=== PATIENT | female | born 1945 | race Caucasian/White ===

== ENCOUNTER 2021-07-21 15:19 | Emergency (ER) | payer OTHER ==
[~2021-07-21] VITALS: Ht 165.1 cm; Wt 62.6 kg
--- NOTE | ~2021-07-21 | EMS ---
[facility] [address] [place] [address] EMS Patient Care Report Name: DINORAH BOND Room #: REG ANLI Fang#: [id number] Admission: 07/21/21 Attend Phys: Discharge: Date of : 43 Report #: [id number] THIS REPORT FOR: //name// Report Transmitted: 07/21/2021 15:36 EMS Care Summary [place], [place]/[facility] Incident [id number] @ 07/21/2021 14:54 Incident Location [id number] [place] [address] Patient DINORAH BOND Female, 76 Years 1945 Patient Address [address] [place], [place] [id number] Patient History Chronic Obstructive Pulmonary Disease (COPD),Dementia,Diabetes,Hypertension (HTN),Parkinson's Disease,Hyperlipidemia,Gastro-Esophageal Reflux Disease (GERD),Schizophrenia,Depression,Anxiety,Anemia,Constipation, Patient Allergies Other drug allergy, Chief Complaint SI Disposition Transported No Lights/[place] Dispatch Reason Psychiatric Problem/Abnormal Behavior/Suicide Attempt Transported To [facility] Narrative pt is found a&o, ambulatory. she made SI statements to staff and is to be transferred for mental health eval at [facility]. pt is calm and cooperative. she seats self on cot, VS, transport w/o incident. report to staff, hallway bed [facility] [address] [place] [address] EMS Patient Care Report Name: DINORAH BOND Room #: [facility]#: [id number] Admission: 07/21/21 Attend Phys: Discharge: Date of : 43 Report #: [id number] Initial Vitals @15:08P: 66,R: 18,BP: 138/68,Pain: 0/10,GCS: 15,SpO2: 95,Revised Trauma: 12, Assessments @15:00MENTAL:Time Oriented,Event Oriented,Person Oriented,Place Oriented,Other,SKIN:No Abnormalities,HEENT:Head/Face: No Abnormalities,LUNG SOUNDS:ABDOMEN:PELVIS//GI:EXTREMITIES:PULSE:Radial: 2+ Normal,NEURO:No Abnormalities, Impression Behavioral/psychiatric episode Procedures @15:00 ALS Assessment Response: Unchanged @15:06 Stretcher Response: Unchanged Timeline 14:52,Call Received 14:52,Dispatch Notified 14:54,Dispatched 14:54,En Route 14:58,On Scene 15:00,At Patient 15:00,ALS Assessment,Response: Unchanged 15:05,Depart Scene 15:06,Stretcher,Response: Unchanged 15:08,BP: 138/68 M,PULSE: 66,RR: 18 R,SPO2: 95 Ox,ETCO2: ,BG: ,PAIN: 0,GCS: 15, 15:16,At Destination 15:31,Call Closed Disclaimer v1.1 Copyright 2020 [employer] This EMS Care Summary contains data elements from the applicable legal record (which may be displayed differently). It is designed to provide pertinent information for the following purposes: continuity of care, clinical quality, and state data reporting. The complete legal record is available to ED staff and administrators of the receiving hospital in [facility]'s Patient Tracker. All data is provided "as is."
[2021-07-21 15:19] VITALS: BP 147/83
[~2021-07-21 15:19] MED LIST: ADULT LOW DOSE81 MG PO; ATIVAN0.5 MG; ATIVAN0.5 MG PO; COLACE 100 MG100 MG PO; FERRO-TIME325 MG PO; IMODIUM MULTI-1 EACH; KLONIPIN PO; KLONOPIN PO; LAMICTAL XR100 MG PO; LAMICTAL XR200 MG PO; MOM; OS-CAL 500+D C1 EACH PO; PEPCID40 MG PO; PROZAC40 MG PO; SIMVASTATIN20 MG PO; SINEMET 25-2501 EAC1 PO; ULTRAM 50MG TAB50 MG; ZYPREXA 10 MG T10 M1 PO; ZYPREXA2.5 MG PO
[2021-07-21 16:44] LABS: URINE BILIRUBIN NEGATIVE (Negative); URINE BLOOD NEGATIVE (Negative); URINE CLARITY CLEAR; URINE COLOR YELLOW; URINE GLUCOSE-RANDOM* NEGATIVE (Negative); URINE KETONES NEGATIVE (Negative); URINE NITRITE-REFLEX NEGATIVE (Negative); URINE PROTEIN (DIPSTICK) NEGATIVE (Negative); URINE UROBILINOGEN 0.2 E.U./dl (0.2-1.0)
--- NOTE | 2021-07-21 16:45 | NUR ---
PT PREVIOUSLY CHECKED FOR WEAPONS BY DR. SCHILLING. SITTER OUTSIDE PT DOOR FOR OBSERVATION & SAFETY. PT PULLED PEN OUT OF UNDERWEAR AREA, REMOVED FROM PT & ROOM BY SITTER
[2021-07-21 16:48] LABS: URINE LEUKOCYTES-REFLEX 1+ (Negative)
[2021-07-21 16:54] LABS: AMP/METHAMP Negative (Negative); BARBITURATES Negative (Negative); BENZODIAZEPINES POSITIVE (Negative); COCAINE Negative (Negative); METHADONE Negative (Negative); OPIATES Negative (Negative); PCP Negative (Negative)
[2021-07-21 17:10] LABS: BACTERIA-REFLEX 1-9 Few /HPF (None Seen); CASTS None Seen /LPF (None Seen); CRYSTALS None Seen /LPF (None Seen); SQUAMOUS 0-3 Few /LPF (0-3); URINE RBC 1-2 Rare /HPF (NONE SEEN); URINE WBC-REFLEX 0-5 Rare /HPF (0-5)
[2021-07-21 17:25] LABS: ABSOLUTE NEUTROPHILS 3.7 thou/uL (1.4-8.2); BASOPHILS 0.6 % (0.0-2.0); EOSINOPHILS 0.5 % (0.0-3.0); HEMATOCRIT 37.2 % (37.0-47.0); HEMOGLOBIN 11.8 gm/dL (12.0-15.0); LYMPHOCYTES 21.2 % (24.0-44.0); MCH 24.6 pg (26.0-34.0); MCHC 31.8 g/dL (28.0-37.0); MCV 77.5 fL (80.0-100.0); MONOCYTES 8.9 % (1.0-8.0); PLATELET COUNT 140 thou/uL (150-400); POLYS 68.8 % (36.0-66.0); RDW 16.3 % (10.5-14.5); WBC 5.4 thou/uL (4.0-11.0)
[2021-07-21 17:38] LABS: ANION GAP 10 mmol/L (7-16); BUN 11 mg/dL (7-18); CALCIUM 9.5 mg/dL (8.5-10.1); CHLORIDE 106 mmol/L (98-107); CO2 27 mmol/L (21-32); CREATININE 0.8 mg/dL (0.6-1.0); GLUCOSE 89 mg/dL (74-106); SODIUM 143 mmol/L (136-145)
[2021-07-21 17:50] LABS: ALBUMIN 3.3 g/dL (3.4-5.0); SGOT 16 U/L (15-37); SGPT 6 U/L (30-65); TOTAL BILIRUBIN 0.3 mg/dL (0.2-1.0); TOTAL PROTEIN 6.7 g/dL (6.4-8.2)
[2021-07-21 20:15] VITALS: BP 133/55
--- NOTE | 2021-07-22 07:10 | EKG ---
[address] [place] [address] ELECTROCARDIOGRAM REPORT Name: DINORAH BOND Room #: [facility]#: [id number] Admission: 07/21/21 Attend Phys: Discharge: 07/21/21 Date of : 43 Report #: [id number] ED Test Date: 2021-07-21 Test Time: 16:01:31 Pat Name: DINORAH BOND Department: Room: 170 Gender: F Continuous Mining Machine Coal Miner: : 1945 Requested By: Candie Grimes Order Number: [id number] MD: Elver Jorgensen Measurements Intervals [place] Rate: 57 P: 79 SD: 181 QRS: 22 QRSD: 117 T: 140 QT: 404 QTc: 394 Interpretive Statements Sinus rhythm Consider left atrial enlargement Nonspecific intraventricular conduction delay Repol abnrm suggests ischemia, anterolateral Compared to ECG 11/26/2013 14:58:17 Intraventricular conduction delay now present Early repolarization now present ST (T wave) deviation no longer present Possible ischemia still present Electronically Signed On 07-22-2021 7:10:11 CDT by Elver Jorgensen [email or web address] <ELECTRONICALLY SIGNED> By: Elver Jorgensen MD, FACC 07/22/21 0710 160 160 Elver Jorgensen MD, FAC /EPI
== END 2021-07-21 20:27 ==
LOC: ER 15:19 → EROBS 19:05 → ER 20:27
PROVIDERS: Physician Assistant
DX: R41.82 Altered mental status, unspecified (principal); Z20.822 Contact with and (suspected) exposure to COVID-19; N39.0 Urinary tract infection, site not specified; F31.9 Bipolar disorder, unspecified; G20 Parkinson's disease; Z90.2 Acquired absence of lung [part of]; Z90.11 Acquired absence of right breast and nipple; Z79.82 Long term (current) use of aspirin; Z79.891 Long term (current) use of opiate analgesic; Z79.899 Other long term (current) drug therapy; Z88.8 Allergy status to other drugs, medicaments and biological substances

== ENCOUNTER 2021-07-21 20:25 | Inpatient (IN) | payer OTHER ==
[~2021-07-21] VITALS: Ht 165.1 cm; Wt 62.4 kg
[2021-07-21 20:25] VITALS: BP 141/84
--- NOTE | 2021-07-22 05:25 | NUR ---
07-21-21 RECEIVED REPORT FROM ED RN DIEGO PT ARRIVED ON UNIT 2034 PT AAOX4, B/P 141/84, P 58, R 16, T 98.5, 02 SAT 94% RA, RR EVEN AND NONLABORED ON RA. PT DENIES SI/HI/VAH AND PAIN. PT REPORTED SHE IS BEING OVER MEDICATED AND THE FOOD IS BAD. PT REPORTED SHE DID MAKE THREATS AGAINST SELF, BUT THAT WAS SO SHE COULD COME TO HOSPITAL. PT HX HTN, VITAMIN DEFICIENCY, ANEMIA, HLD, COPD, GERD, CONSTPIATION, OA, NEOPLASM OF BRONCHUS AND LUNGS, MALIGNANT NEOPLASM OF BREAST, R. MASTECTOMY. DM II, DEPRESSION, SCHIZOPHRENIA. REACH OUT TO [facility] AND THREE DIFFERENT OCCASIONS PHONE NOT ANSWERED R/T CURRENT MEDICATION, DPOA, VACCINE STATUS, IN ED REPORT THAT ALSO TRIED CONTACTING FACILITY WITH NO COMMUNICATION OR REPORT FROM [facility]. HCP Vincent CRYSTAL NP CONTACTED FOR CONSULT. HCP Garrett SALAS NP CONTACTED. LATER THIS AM SPOKE WITH NURSE PARKINSON OF [facility] AND SHE REPORTED SINCE THE PT IS OUT OF THEIR SYSTEM SHE DOES NOT KNOW HOW TO PULL INFORMATION, BUT WILL PASS ON TO ONCOMING STAFF, FAX NUMBER AND UNIT NUMEBER TAKEN BY NURSE PARKINSON. LATER PT REPORTED SHE WAS GLAD TO BE AT HOSPITAL, PT HAS REMAINED PLESANT, CALM AND COOPERATIVE. PT WILL CONTINUE TO BE MONITOR PER [facility] PROTOCOL.
[2021-07-22 06:10] LABS: CHOLESTEROL 157 mg/dL (<200); HDL CHOLESTEROL 61 mg/dL (>40); LDL CHOLESTEROL 78 mg/dL (<100); TC:HDL 2.6 Ratio (Not establshd); TRIGLYCERIDE 94 mg/dL (<150); VLDL 19 mg/dL (<40)
[2021-07-22 06:29] LABS: SERUM ASSESSMENT Clear
--- NOTE | 2021-07-22 09:22 | NUR ---
New admit to [facility]: Pt noted admitted for threats to harm self. Per chart review PMH includes schizophrenia, bipoloar d/o, Parkinson's, depression for psych and anemia, vitamin deficieny, HTN, GERD, COPD and DMII. S/p L lobectomy and R mastectomy. Pt admitted to threats of self harm, but reports that was so she could come to the hospital d/t her facility is over-mdeicating her and the food is bad. Ate 100% of box meal last noc on arrival to floor. No reports of sig wt changes on admit; weight/BMI appropriate. Consider low nutrition risk at this time.
[2021-07-22 10:14] LABS: FOLIC ACID 16.1 ng/mL (8.6-58.9)
--- NOTE | 2021-07-22 12:37 | NUR ---
07-22-2021--1100--Dr. Ott, this worker and patient made a call to the DPOA for the patient. The DPOA is patient's sister, Cynthia Weber ([phone]). [facility] states they talk daily but she had very little information re: the patient. Patient showed up in the ER sent from her [facility]. ([phone]--talk to Abbey). Patient states she is here because she was "banging my head against the wall". She reports when she becomes angry she "self harms". I inquired what she got angry and about and she reported sometimes I just start thinking about things and I get angry. She states she has done this before. The doctor also asked her if it was true that she had made the statement to someone at the home that she wanted to cut her carotid with a knife (suicidal ideation). She talked about when she bangs her head against the wall "It distracts me". She states it doesn't hurt. Patients diagnosis is dementia. The SLUMS was given to her by the Doctor and she scored 16/30. Possible diagnosis also is Alzheimers, depression and anxiety. She displays essential tremors and takes meds cintamint for Parkinsons but she states she has been told by a specialist she doesn't have it. Patient has been at her current placement for about twelve years. She denies SI/HI at this time. DPOA states patient is very active and walks daily. She also likes to participate in activities. DPOA states she believes the dementia has come on recently. She was once and after several years. She then had a "relationship" for over 20 years with someone else. She denies any sexual or physical abuse by her /partners and none in her family or origin. Assessment will be completed this date.
--- NOTE | 2021-07-22 13:17 | NUR ---
COILED TUBING SUPERVISOR contacted [facility] in regards to forms and information needed for patients chart. Night RN informed COILED TUBING SUPERVISOR she was unable to recieve information and the ER had not recieved the information either. COILED TUBING SUPERVISOR spoke to madelin Eaton at 1310 in regards to a DPOA/POA, Nurses Notes for the past 7 days, and a current med list. Angelito informed COILED TUBING SUPERVISOR she would fax the information within the hour.
[2021-07-22 17:20] VITALS: BP 125/67
[2021-07-22 17:21] VITALS: BP 125/67
--- NOTE | 2021-07-22 17:52 | NUR ---
Patient located in bed lying supine apon rounds. Patient presented to COD CLERK flat, depressed, and a little withdrawn. Patient A&O*3 (Self,Place,Situation) lung sounds are clear and unlabored, LBM:07/21/21 abdomen soft with bowel sounds present. Patient denies SI/HI/AVH/Anxiety, but admits to having some depression and pain. Patient states shes having lower back pain which shes had chronicly. COD CLERK presetned different ways to lesson this pain and patient agreed it helped some. Patient later admitted after her nap the pain has resurfaced, medication intervention was completed. Patient states she is upset with facility in which she believes they are overmedicating her and she just wants someone to help her. Patient later came out of her room and participated in groups, meals are in room pending COVID tests. Pt. had a UA done and has sense been placed on antibiotics for a UTI. Pt medication and meal compliant, VSS, fall preventions are in place. Will continue to monitior patient for safety and behaviors.
[2021-07-22 19:57] VITALS: BP 126/63
--- NOTE | 2021-07-23 01:00 | NUR ---
Assumed care on 07/22/21 @ 1900, in room awake alert and oriented x3-4. HRRR, Lungs CTA bilat, ABD N x 4Q reports BM today x2. Reports still anxious with television coverage of war and violence disturbing her. Reports that she thinks of SI/HI when she handles an object, thinks (in passing) of how she could hurt herself with it (like a pencil, how could she effect injury with a pencil) but is able to resist the urge to injure herself. Takes meds whole with water. Cooperative with care. Bed in low position, rounding continues for safety and comfort.
[2021-07-23 03:06] LABS: GLYCOHEMOGLOBIN (HGB A1C) 5.8 % (4.8-5.6)
[2021-07-23 10:24] VITALS: BP 132/81
--- NOTE | 2021-07-23 13:26 | NUR ---
PATIENT CARE ASSUMED AT 0700, PATIENT ALERT AND ORIENTED X3, CALM AND COOPERATIVE WITH CARE TOOK HER MEDICATION WHOLE, BREATH SOUND CLEAR, ACTIVE BOWEL SOUND WITH SOFT ABDOMEN, SKIN INTACT,NO EDEMA NOTED, PATIENT AMBULATE ON A STEADY GAIT, SHE ATTEND GROUP, SHE. PATIENT IS ABLE TO VERBALIZE NEED, SHE DENIES SI/HI. WILL CONTINUE TO MONITOR PATIENT FOR SAFETY AND BEHAVIOR
[2021-07-23 20:30] VITALS: BP 132/74
--- NOTE | 2021-07-23 23:59 | NUR ---
At onset of sales agent casualty insurance pt was sitting in her room awake. Pt was alert with broad affect. Pt was compliant with vital signs and medications. Pt spent free time in the evening in her room journaling. Pt stated she came to the hospital because she hit her head at the jail and her jail staff "couldn't handle it." Pt stated that she has had self-harming behavior all her adult life. Pt stated she does not currently have thoughts to harm herself. Pt stated that she made a contract with day shift that won't hurt herself with pencils. Pt denied having active SI, but stated she does have thoughts about being and being "at peace." Later in the evening pt came out of her room crying, stating "I know why I am here." Pt stated that she has a ex-boyfriend who and she has not mourned him yet. Pt feels she is mourning this ex-boyfriend now. Pt then stated she plans on "pulling an all-nighter." Pt was encouraged to go to sleep. Will continue to monitor.
[2021-07-24 10:20] VITALS: BP 124/62
--- NOTE | 2021-07-24 10:53 | NUR ---
ASSUMED CARE AT 0700, PATIENT SITTING IN THE COMMON AREA, ALERT AND ORIENTED X3, CALM AND COPERATIVE WITH CARE, PATIENT TOOK MEDICATION WHOLE, ABMULATE WITHOUT DEVICES ON A STEADY GAIT, PATIENT IS ABLE TO VERBALIZED NEEDS, TOLD ME SHE IS HAVING A GOOD DAY AND HAPPY ABOUT THE CARE SHE IS GETTING HERE, ASSESSMENT COMPLETED WITH CLEAR LUNGS, ACTIVE BOWEL SOUND WITH SOFT ABDOMEN, HAD A BOWEL MOVEMENT TODAY, SKIN INTACT WITH NO EDEMA NOTED, NO BEHAVIOR CHANGES, WILL CONTINE TO MONITOR PATIENT FOR SAFETY AND BEHAVIOR
--- NOTE | 2021-07-24 13:00 | NUR ---
07-24-2021--1100--Met with patient in the dayroom. She had just returned from a group with the Sodium Chlorite Operator. She stated she had lived in [facility] until a bout 12 years ago when she moved here to be close to her sister. She states she is tired of where she is living and would like something different. She is cooperative in groups. She states she doesn't have a therapist. She enjoys journaling and states this is helpful for her.
[2021-07-24 19:26] VITALS: BP 149/62
--- NOTE | 2021-07-24 19:50 | H ---
[facility] [address] [place] [address] HISTORY AND PHYSICAL Name: DINORAH BOND Room #: 522A-A ADM IN M.R.#: [id number] Admission: 07/21/21 Attend Phys: Gorge Anne DO Discharge: Date of : 43 Report #: [id number] THIS REPORT FOR: cc: Mike Walls MD, Srinath MD Kerstein,Gorge Reed DO ~ DATE OF SERVICE: 07/22/2021 ATTENDING PSYCHIATRIST: Gorge Anne DO MEDICAL CONSULTANTS: Roro Saunders APRN and Gagan Mccracken MD and his hospitalist team. REASON FOR ADMISSION: Suicidal ideation to cut her carotid artery with a knife or razor blade. SOURCES OF INFORMATION: Interview with the patient; chart review here at [facility]; very limited records provided by [employer], verbal conversation with her sister, who is alleged to be her power of auto appraiser, Cynthia Weber; the patient's primary care physician at [facility], Dr. Mike Walls. HISTORY OF PRESENT ILLNESS: A 76-year-old female, brought in to the [facility] by ambulance and the patient told the ER, she was here for self-injury. Nursing staff told EMS that she was going to stick pins in her carotid arteries to kill herself. The patient was very calm in ER and cooperative. PAST MEDICAL HISTORY: Includes right mastectomy, left lung cancer, lobectomy. She is on Sinemet, but it is for her essential tremor not Parkinson's disease. PSYCHIATRIC HISTORY: Nurses from ER report bipolar disorder and depression. MEDICATIONS: From [facility] are highly in question as prior records we do not have, but what is listed in the ER is calcium carbonate with vitamin D, aspirin, famotidine 40 mg daily, simvastatin 1 tab daily, carbidopa/levodopa 25/100 four times a day, Klonopin 0.25 mg b.i.d., olanzapine 10 mg tab at bedtime, fluoxetine 40 mg daily, magnesium hydroxide. ALLERGIES: BUSPIRONE. SOCIAL HISTORY: No alcohol, recreational smoking history. Weight 60.60 kilos, BMI is 22.9, height 165.1 cm. LABORATORY DATA: Hematology; white count 5.4, H and H 11.8 and 38.3, platelet [address] [address] HISTORY AND PHYSICAL Name: DINORAH BOND Room #: 522A-A ADM IN .R.#: [id number] Admission: 07/21/21 Attend Phys: Gorge Anne, Discharge: Date of : 43 Report #: [id number] count 140. Coags were from 2013. Chemistries of recent note, sodium 143, potassium 4.0, chloride 106, bicarbonate 27, anion gap 10, BUN 11, creatinine 0.8, estimated GFR 70, glucose around 89, calcium 9.5, total bilirubin 0.3, AST 16, ALT 6, alkaline phosphatase 130. Troponin less than 4, total protein 6.7, albumin 3.3, triglycerides 94, cholesterol 157, LDL 70, and HDL 61. B12 of 951. Folate 16.1. TSH 2.550, that is all normal. Urinalysis was clean except 1+ leukocyte esterase, 1-9 bacteria. Culture that was triggered showed 40,000 CFUs of Gram-positive cocci , I do not think it is infectious, probable contaminants. Toxicology; salicylate less than 0.8, acetaminophen less than 2. UDS positive for benzos. SARS-CoV-2 PCR is not detected. PHYSICAL EXAMINATION: VITAL SIGNS: Here at [facility], temperature 36.9, pulse 58, respirations 16, BP 141/84, O2 sat 94%. MUSCULOSKELETAL: Normal gait and station. Unkempt appearance. MENTAL STATUS EXAMINATION: This is a well-developed, ill-appearing female, appearing stated age. Attention fair. Concentration limited. Speech normal in rate, tone. Thought process: Linear and goal directed. Thought content focused on present. mood/affect- depressed, restricted, congruent Denied SI, HI. Denied auditory, visual, or tactile hallucinations. Memory formally tested, impaired. Normal SLUMS. Interestingly, she scored 16/30 on her SLUMS, made errors for memory and other. FORMULATION: A 76-year-old female from nursing facility for suicidal ideation. The patient has a history of multiple past psychiatric admissions. Of note too, we got some background history from the patient and it included family history of her sister who is living, one marriage, lives in [place], relationship for 20 years, . She has a college degree. DPOA documents are not handy. DIAGNOSES: At this time, major neurocognitive disorder, may be Alzheimer's disease with behavioral disturbance, also depression. Multiple morbidities including urinary tract infection, disorder, chronic thrombocytopenia, hyperlipidemia, history of breast and lung cancer. PLAN: Admitted voluntarily to [facility] to evaluate and stabilize. We are still waiting on a medication list from the [facility]. Current meds ordered are atorvastatin 20 mg a day and Keflex 500 mg p.o. t.i.d. by hospitalist for UTI, famotidine, carbidopa/levodopa 25/100 one tab 4 times a day, aspirin 81 mg oral daily. I have advised the side effects from her medication list. STRENGTHS: She is insured, has a placement. [facility] [address] [place] [address] HISTORY AND PHYSICAL Name: DINORAH BOND Loni Room #: 522A-A ADM IN ..#: [id number] Admission: 07/21/21 Attend Phys: Gorge Anne DO Discharge: Date of : 43 Report #: [id number] WEAKNESSES: Moderate dementia with longstanding history of mental illness. Time spent on this case was greater than 60 minutes, greater than 50% of time was spent on review of records and coordination of direct care. <ELECTRONICALLY SIGNED> By: Gorge Anne DO 07/24/21 1950 1301 1446 Gorge Anne DO /nt
--- NOTE | 2021-07-24 22:55 | NUR ---
At onset of night warehouse manager pt was sitting in day room talking with peer. This shift pt was alert and oriented x4. Pt spent free time sitting in the day room talking with staff and peers. Pt spent time sitting next to a peer with dementia talking with her and trying to help her stay calm. Pt was compliant with medications and vital signs. Pt endorsed having thoughts to hurt herself and endorsed having thoughts about SI, but pt stated she has been able to resist the thoughts. Pt stated today she has been thinking about how her mother and her sister "stole" her life from her. Pt feels that her mother and sister left her out when she was growing up. Pt stated she does not have a therapist, but was hoping she could be connected with a therapist before she discharges. Pt's affect was broad and affect quality varried from depressed to happy. Pt took PRN trazodone and went to sleep. Will continue to monitor.
[2021-07-25 06:57] VITALS: BP 139/67
--- NOTE | 2021-07-25 10:17 | NUR ---
07-25-2021--7188--I walked in the hallway and patient asked if she could come to my office and talk. She accompanied me to the office. She just had general things to share such as she didn't sleep very well last night and she talked about calling her sister. I explained her nurse tipple supervisor at nurses station would help her when things slowed down on the unit. She went back to the dayroom for group.
--- NOTE | 2021-07-25 11:58 | NUR ---
CARE ASSUMED AT 0700, PATIENT SITTING ON THE CHAIR IN THE DAY ROOM, CALM. PLEASANT AND COOPERATIVE WITH CARE, TOOK MEDICATION WHOLE WITHOUT ANY PROBLEM, AMBULATE ON A STEADY GAIT WITH NO DEVICE, ASSESSMENT DONE, BREATH SOUND CLEAR, ACTIVE BOWEL SOUND WITH SOFT ABDOMEN, REG HR, COLOR PINK WITH BRISK CAPILLARY REFILL, NO EDEMA NOTED, PATIENT LIKE TO HELP OTHER PATIENT, SHE IS ABLE TO VERBALIZE NEED, NO BEHAVIOR CHANGE, DENIES SI/HI WHEN ASKED, WILL CONTINUE TO MONITOR PATIENT FOR BEHAVIOR AND SAFETY
[2021-07-25 20:00] VITALS: BP 110/67
[2021-07-25 20:15] VITALS: BP 110/67
--- NOTE | 2021-07-26 03:07 | NUR ---
FLORIAN CARE WAS RESUMED AT 1900. SHE WAS IN THE DINING AREA. SHE IS ALERT AND ABLE TP VERABLIZE HIS NEEDS. LUNGS ARE CLEAR BS ACTIVE. HE TOOK HER MEDS WHOLE. SHE DENIES PAINS SI/AVH/HI. SHE IS CONTINENT OF BOWEL AND BLADDER. SHE IS ABLE TO VERBALIZE CONCERN. BED IS LOW AND LOCKED. SHE TOOK HER MEDS WHOLE.
[2021-07-26 10:04] VITALS: BP 106/55
--- NOTE | 2021-07-26 17:31 | NUR ---
Assumed pt care at 0700. Pt was alert and oriented x4. Assessments completed, vss. Lungs clear, active bowel sound. Denies si/hi. No c/o pain at this time. Took meds whole, no difficulty noted. AMbulates with a steady gait. Calm and cooperative with care. Continent of bowel and bladder. Makes needs known to staff. Pt was irritable at 1300. Pt was redirectable. No PRN given this shift. At this time pt is in the day room. Will continue to monitor.
[2021-07-26 20:13] VITALS: BP 131/55
--- NOTE | 2021-07-26 21:38 | NUR ---
Assumed care on 07/26/21 @ 1900, up ad vijay ambulating the halls independent of device, spent time in her room and the day room. Seeks out staff to socialize A&Ox4, calm and cooperative with cares. Denies Si/HI, Hallucinations Deny Anx, depr. VSS, HRRR, Lungs CTA bilat, ABD N x 4Q. Ate 100% of evening snack. Retired to bed @ HS, bed in low position, will continue to monitor for safety and comfort as per unit protocol.
--- NOTE | 2021-07-27 16:45 | NUR ---
Assumed pt care at 0700. Pt was alert and oriented x4. Assessments completed, vss. Lungs clear, active bowel sound. Denies si/hi, Denies pain at this time. Took meds whole, no diificulty noted. Ambulates with a steady gait. Calm and cooperative with care. Continent of bowel and bladder. Makes needs known to staff. No sign of acute distress noted at this time. Pt is in the day room eating dinner. Will continue to monitor.
[2021-07-27 19:35] VITALS: BP 118/52
[2021-07-27 19:53] VITALS: BP 118/52
--- NOTE | 2021-07-28 03:51 | NUR ---
ASSUMED CARE ON 07/27/21 @ 1900, A&OX3, PLEASANT AFFECT, SOCIALIZING WITH PEERS IN THE DAY ROOM. DENIES PAIN, COOPERATED WITH ASSESSMENT AND TOOK MEDS WHOLE. REPORTS BM TODAY LARGE WELL FORMED STOOL. PROVIDED SINAMET Q6 ORDERED. REPORTS WANTS TO GO HOME SOON. LOW FALL RISK, AMBULATES WITH A STEADY GAIT. WILL CONTINUE TO MONITOR FOR SAFETY AND COMFORT PER UNIT PROTOCOL.
[2021-07-28 10:49] VITALS: BP 116/53
--- NOTE | 2021-07-28 11:15 | NUR ---
RT Progress Note- Lindsey has been present in the milieu and recreation therapy groups each day of her admission. She is very involved with other patients on the unit, sometimes requiring redirection as she can become "overly helpful." Lindsey benefits from constant structure and has been provided tools to journal and color between programming. She has not voiced suicidal ideation, though verbalizes anxiety caused by the environment. She is able to identify solutions when this occurs. LDR NURSE will continue plan.
--- NOTE | 2021-07-28 15:37 | NUR ---
WILL COME OUT OF ROOM FOR MEALS/GROUPS OTHERWISE WILL RETREAT TO ROOM DURING UNSTRUCTURED TIME. PLEASANT WHEN ENGAGED IN 1;1 WITH NURSING-FULL RANGE AFFECT-CONVERSATION GOAL DIRECTED-MINIMIZES BEHVIORS STATING DOESN'T KNOW WHY SHE IS HERE OR WHY MD WON'T DC HER. VAGUE/SUPERFICIAL RESPONSES TO QUESTIONS ASKED-DENEIS DEPRESSIVE SYMPTOMS-DENIES ACUTE ANXIETY-ORIENTED TO PERSON/PLACE-SITUATION
[2021-07-28 19:47] VITALS: BP 138/101
[2021-07-28 19:51] VITALS: BP 110/70
--- NOTE | 2021-07-29 01:12 | NUR ---
At onset of shift pt was sitting in her room awake. This shift pt was alert and oriented x4. Pt was observed sitting on the floor outside her room. Pt placed herself on the floor because she was waiting for someone to ask for different pants. Pt is physically capable of getting up off the floor by herself. Pt was compliant with vital signs and most medications; pt refused her gabapentin stating she does need it. Pt also stated she does not have parkinsons. Pt was pleasant but was irritable about having a roommate. Pt expressed frustration that the roommate and her have different sleep schedules and the pt stated she could not sleep. Pt recieved her HS trazodone but did not sleep well and was restless. Pt requested a "a shot of booze, I think I have an order for it." RN explained that alcohol is not ordered in the hospital like it can be in the [facility]. Pt denied SI, HI and AVH. Pt endorsed anxiety about discharging tomorrow. RN attempted to reassure pt but pt stated "yeah, yeah, that's what they all say." Pt is low fall risk. Will continue to monitor.
--- NOTE | 2021-07-29 08:19 | NUR ---
07-29--2020---Printed out new packet to fax to [facility] anticipating DC this date after call to OA sister (Cynthia [phone]) and talking to doctor.
--- NOTE | 2021-07-29 08:23 | NUR ---
07-29-2021--ERROR IN ABOVE NOTE--The halfway is [facility]. Call made to talk to DON or admissions. ([phone]). Asked to call back in 20 minutes.
--- NOTE | 2021-07-29 08:57 | NUR ---
07-29-2021--899--Call to [facility] once again to speak to DON or admissions about a fax number for returning patient to the residence. Received fax number from [facility] (FAX: [phone]). I also left a message for them to call me back to discuss DC.
--- NOTE | 2021-07-29 09:04 | NUR ---
07-29-2021--0905--Info gathered and faxed to [facility]. Waiting for a call back.
--- NOTE | 2021-07-29 09:08 | NUR ---
Nutrition follow up: Possible d/c this date back to facility. Noted with variable intakes at meals 25-100% documented with some refusals noted; avg 50% across all meals. No weight since admit. If she does not d/c today, recommend obtain current weight r/t variable intakes. Remains low nutrition risk.
[2021-07-29 09:43] VITALS: BP 143/48
--- NOTE | 2021-07-29 10:44 | NUR ---
07-29-2021--1045--MD irizarry with 1PM DC when we hear back from [facility]. Call to DPOA to advise and see if she wants to provide transportation. left.
--- NOTE | 2021-07-29 10:47 | NUR ---
07-29-2021--1055--Call to Abbey at [facility]. I asked ir 1:00 would work for them and she stated yes and asked if we would feed her first. I told her yes. Call to [facility] and they can't p/u until 2:00 pm. Call back and message left for Abbey that it would be a 2pm p/u. I will tell unit sec the time and talk to patient.
--- NOTE | 2021-07-29 10:58 | NUR ---
07-29-2021--1100--Talked to unit sec and gave 2:00 time. Talked to patient and gave her the 2:00 pm time for pickup. Will let doctor know time change
[2021-07-29] MEDS ORDERED: LEXAPRO20 MG PO (12:57)
[2021-07-29] MEDS ORDERED: NEURONTIN 300M300 M2 PO (12:57)
[2021-07-29] MEDS ORDERED: TRAZODONE HCL50 MG PO (12:58)
[2021-07-29] MEDS ORDERED: NAMENDA 5 MG TAB5 M1 PO (12:58)
[2021-07-29] MEDS ORDERED: COLACE 100 MG100 MG PO (13:07)
[2021-07-29] MEDS ORDERED: PEPCID20 MG PO (13:08)
[2021-07-29] MEDS ORDERED: VITAMIN B-12500 MCG PO (13:08)
[2021-07-29] MEDS ORDERED: VITAMIN D325 MC2 PO (13:09)
--- NOTE | 2021-07-29 13:44 | NUR ---
MESSAGE LEFT FOR SANTO ARCE DPMARIA ESTHER AT [phone] TO REVIEW DC PAPERWORK-INSTRUCTIONS,MEDICATIONS ETC-AWAITING RETURN CALL. REPORT CALLED TO XIOMY AT [facility]. AISSATOU IS ALERT,COOPERATIVE AND PLEASANT AT TIME OF DC-DENIES SI/SH/HI. DENIES ACUTE ANXIETY AND STATING FEELS READY FOR DC. PERSONAL BELONGINGS SECURED AND SECURITY CONTACTED RE 2 VALUABLES ENVELOPES WHICH WILL BE PICKED UP AT TIME OF DC.
--- NOTE | 2021-07-29 15:15 | NUR ---
PT DISCHARGED VIA WHEELCHAIR ACCOMPNIED BY NURSING STAFF-[facility] TO TRANSPORT TO [facility]. COOPERATIVE AND PLEASANT AT TIME OF DC
--- NOTE | 2021-07-30 08:40 | D ---
[facility] [address] [place] [address] DISCHARGE SUMMARY Name: DINORAH BOND Room #: 522B-B [facility] IN M.R.#: [id number] Admission: 07/21/21 Attend Phys: Gorge Anne DO Discharge: 07/29/21 Date of : 43 Report #: [id number] THIS REPORT FOR: cc: Mike Walls MD, Srinath MD Kerstein,Gorge Reed DO ~ DATE OF SERVICE: 07/29/2021 INPATIENT PSYCHIATRIC DISCHARGE SUMMARY ATTENDING PSYCHIATRIST: Gorge Anne DO CLAIMS DIRECTOR: Gorge Galdamez MD DISCHARGE DIAGNOSES: Major neurocognitive disorder, etiology unspecified with behavioral disturbance, improved; major depressive disorder, unspecified, improved; unspecified anxiety as well as mood stabilization. ADDITIONAL MEDICAL COMORBIDITIES: Include: 1. Urinary tract infection, ruled out. 2. Chronic thrombocytopenia, platelets stable at 140. 3. Hyperlipidemia, on statin. 4. History of breast and lung cancer. The patient is discharging back to [facility]. She has been a resident there for 12 years. Psychiatric and medical care per receiving facility. Would recommend psychotherapy and psychiatry consultation at nursing facility. DISCHARGE DIET: Regular. ACTIVITY LEVEL: As tolerated, but the patient does require 24/7 supervision. Obviously, no smoking, no alcohol, no illicit drugs. DISCHARGE MEDICATIONS: As follows: Calcium carbonate with vitamin D3 one tablet oral daily for supplementation, aspirin 81 mg oral daily for hypertension, simvastatin 20 mg oral daily for hyperlipidemia, carbidopa/levodopa 25/250 one tablet 4 times a day for tremor. This was started at the nursing facility. The patient is requesting evaluation for discontinuation of this medication and I defer to the usp physician. Medications, gabapentin 300 mg oral daily for unspecified anxiety, Lexapro 20 mg oral daily for depression, trazodone 50 mg oral at bedtime p.r.n. for sleep, memantine 5 mg oral b.i.d. for cognitive enhancement, docusate sodium 100 mg oral daily for bowel motility, Pepcid 20 mg oral daily for GERD, cyanocobalamin 500 mcg oral daily for supplementation, vitamin D3 1000 international units oral daily for supplementation. [facility] [address] [place] [address] DISCHARGE SUMMARY Name: DINORAH BOND Room #: 522B-B [facility] IN [facility].#: [id number] Admission: 07/21/21 Attend Phys: Gorge Anne DO Discharge: 07/29/21 Date of : 43 Report #: [id number] LABORATORY DATA: Significant laboratories this admission, hematology H and H 11.8 and 37.2, white count 5.4, platelet count 140. Chemistries this admission, sodium 145, potassium 4.0, chloride 106, bicarbonate 27, BUN is 11, creatinine 0.8, estimated GFR 89. A1c 5.8, calcium 9.5, total bilirubin 0.3, AST 16, ALT 6, alkaline phosphatase 130. Troponin less than 4, albumin 3.3, triglycerides 94. Cholesterol 157, LDL 78, HDL 61. B12 level normal at 951. Folate level normal at 61. TSH normal at 2.550. Urinalysis was grossly negative. Salicylate less than 2.8, acetaminophen less than 2. Benzodiazepines positive. Otherwise, UDS negative. COVID-19 serology was negative on the 07/21/2021, 07/24/2021 and 07/26/2021. REASON FOR ADMISSION: The patient is a 76-year-old female residing in [facility] sent out for suicidal ideation to cut her carotid artery with a razor blade. HOSPITAL COURSE: The patient was admitted to the Geriatric Psychiatry Unit. [facility] mental status examination was done. The patient scored, I believe , confirming her neurodegenerative disorder. The patient's mood did rapidly improve. I reduced her Lexapro from 30 mg daily to 20 mg daily. Given the patient's current behavior, I felt reduction of seritonin burden was reasonable. I also started on gabapentin at 200 mg 3 times a day, increasing to 300 mg 3 times a day. She had prominent anxiety and felt she would benefit from mood stabilization. The patient did have some disinhibited behavior with a male peer, but nothing that was terrible. Importance of boundaries were discussed including nursing facility where she will be returning to believe her sister who is her DPOA and was contacted during this admission. The patient has had difficulty functioning throughout her adult life and resulted in her early usp placement sister advised. CONDITION AT DISCHARGE: Stable. Not suicidal or homicidal. PHYSICAL EXAMINATION: GENERAL: Well-developed, fairly nourished female. VITAL SIGNS: Today on discharge, temperature 36.3, pulse 72, respirations 18, BP 143/48, O2 sat 96%. BMI 22.9. MUSCULOSKELETAL: Normal gait and station. EKG done this admission on 07/21/2021, QTc 394, QT 404, DE interval 181 milliseconds, pulse 57, sinus rhythm. MENTAL STATUS EXAMINATION: This is a well-developed, age-appearing female. Attention fair. Concentration fair. Speech normal rate and tone. Thought process: Linear and goal directed. Thought content: Focused on the present. Denied SI, HI. No auditory or visual type hallucinations. mood/affect" good" congruent, euthymic [address] [address] DISCHARGE SUMMARY Name: DINORAH BOND Loni Room #: 522B-B [facility] M.R.#: [id number] Admission: 07/21/21 Attend Phys: Gorge Anne DO Discharge: 07/29/21 Date of : 43 Report #: [id number] Memory known to be impaired. Insight limited. Judgment limited. Fund of knowledge, no greater than average. Prognosis for this patient is guarded given age of 76, having a neurodegenerative disease. <ELECTRONICALLY SIGNED> By: Gorge Anne DO 07/30/21 0840 1945 18 Gorge Anne DO /nt
== END 2021-07-29 15:00 | DRG 881 ==
LOC: SBH 20:25
PROVIDERS: ADMIT Psychiatry & Neurology Psychiatry; ATTEND Psychiatry & Neurology Psychiatry
DX: F32.9 Major depressive disorder, single episode, unspecified (principal); F01.51 Vascular dementia, unspecified severity, with behavioral disturbance; F02.81 Dementia in other diseases classified elsewhere, unspecified severity, with behavioral disturbance; R45.851 Suicidal ideations; G20 Parkinson's disease; E03.9 Hypothyroidism, unspecified; I10 Essential (primary) hypertension; Z20.822 Contact with and (suspected) exposure to COVID-19; F41.9 Anxiety disorder, unspecified; E11.9 Type 2 diabetes mellitus without complications; E78.5 Hyperlipidemia, unspecified; J43.9 Emphysema, unspecified; K21.9 Gastro-esophageal reflux disease without esophagitis; D69.6 Thrombocytopenia, unspecified; Z90.11 Acquired absence of right breast and nipple; Z85.118 Personal history of other malignant neoplasm of bronchus and lung; Z85.3 Personal history of malignant neoplasm of breast; Z88.8 Allergy status to other drugs, medicaments and biological substances
CPT/HCPCS: 10880

== ENCOUNTER 2021-10-20 11:39 | Emergency (ER) | payer OTHER ==
[~2021-10-20] VITALS: Ht 165.1 cm; Wt 61.2 kg
--- NOTE | ~2021-10-20 | EMS ---
[facility] [address] [place] [address] EMS Patient Care Report Name: DINORAH BOND Room #: REG ANIL Fang#: [id number] Admission: 10/20/21 Attend Phys: Discharge: Date of : 43 Report #: [id number] THIS REPORT FOR: //name// Report Transmitted: 10/20/2021 14:28 EMS Care Summary [place], [place]/FD Incident [id number] @ 10/20/2021 10:56 Incident Location [address] [facility] 411 Patient DINORAH BOND Female, 76 Years 1945 Patient Address [address] [place] [address] Patient History Chronic Obstructive Pulmonary Disease (COPD),Hypertension (HTN),Hyperlipidemia,Breast Cancer,Emphysema,Anxiety Disorder (Panic Attacks),Schizophrenia,Depression,Osteoarthritis,Anxiety,Type 2 Diabetes, Patient Allergies No known allergies, Patient Medications Zyprexa, Lexapro, Atorvastatin, Chief Complaint Psychiatric episode Disposition Transported No Lights/[place] Dispatch Reason Psychiatric Problem/Abnormal Behavior/Suicide Attempt Transported To [facility] Narrative [facility] medic 36 dispatched to a half-way facility for a suicidal patient. 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 Facility staff reported that pt had a psychiatric episode and had thrown all of her belongings all over her room. Pt moved to the EMS cot under her own power and was secured with seatbelts. Pt was taken to and loaded into the ambulance without incident. Pt was transported to [facility] while vital signs were monitored. Pt was unloaded from the ambulance and taken in to ER where report was given and care of the pt and posession of her belongings was turned over to ER staff without incident. Initial Vitals @11:16P: 79,R: 14,BP: 148/121,Pain: 0/10,GCS: 15,Glucose: 187,SpO2: 95,Revised Trauma: 12, @11:18P: 76,R: 14,BP: 124/59,Pain: 0/10,GCS: 15,CO: 0,SpO2: 93,Revised Trauma: 12, @11:23P: 77,R: 14,BP: 116/64,Pain: 0/10,GCS: 15,CO: 0,SpO2: 92,Revised Trauma: 12, Assessments @11:13MENTAL:Confused,SKIN:No Abnormalities,HEENT:LUNG SOUNDS:ABDOMEN:PELVIS//GI:EXTREMITIES:PULSE:NEURO:No Abnormalities, Impression Behavioral/psychiatric episode Procedures @11:10 ALS Assessment Response: UnchangedSucceeded @11:23 BLS Assessment Response: Unchanged @11:24 Stretcher Response: Unchanged Timeline 10:54,Call Received 10:54,Dispatch Notified 10:56,Dispatched 10:58,En Route 11:08,On Scene 11:08,At Patient 11:10,ALS Assessment,Response: UnchangedSucceeded, 11:16,BP: 148/121 M,PULSE: 79,RR: 14 R,SPO2: 95 Ox,ETCO2: ,B,PAIN: 0,GCS: 15, 11:18,BP: 124/59 M,PULSE: 76,RR: 14 R,SPO2: 93 Ox,ETCO2: ,BG: ,PAIN: 0,GCS: 15, 11:22,Depart Scene 11:23,BP: 116/64 M,PULSE: 77,RR: 14 R,SPO2: 92 Ox,ETCO2: ,BG: ,PAIN: 0,GCS: 15, 11:23,BLS Assessment,Response: Unchanged 11:24,Stretcher,Response: Unchanged 11:35,[place] [address] EMS Patient Care Report Name: DINORAH BOND Loni [id number] Admission: 10/20/21 Attend Phys: Discharge: Date of : 43 Report #: [id number] 11:48,Call Closed Disclaimer v1.1 Copyright 2021 [employer] This EMS Care Summary contains data elements from the applicable legal record (which may be displayed differently). It is designed to provide pertinent information for the following purposes: continuity of care, clinical quality, and state data reporting. The complete legal record is available to ED staff and administrators of the receiving hospital in [facility]'s Patient Tracker. All data is provided "as is."
--- NOTE | ~2021-10-20 | EMS ---
[facility] [address] [place] [address] EMS Patient Care Report Name: RONDADINORAH Ivey Room #: REG ANIL Fang#: [id number] Admission: 10/20/21 Attend Phys: Discharge: Date of : 43 Report #: [id number] THIS REPORT FOR: //name// Report Transmitted: 10/20/2021 11:17 EMS Care Summary [place], [place]/FD Incident [id number] @ 10/20/2021 10:56 Incident Location [address] [facility] 411 Patient DINORAH BOND Female, 76 Years 1945 Patient Address [id number] [place] [address] Patient History Chronic Obstructive Pulmonary Disease (COPD),Hypertension (HTN),Hyperlipidemia,Breast Cancer,Emphysema,Anxiety Disorder (Panic Attacks),Schizophrenia,Depression,Osteoarthritis,Anxiety,Type 2 Diabetes, Patient Allergies No known allergies, Patient Medications Zyprexa, Lexapro, Atorvastatin, Chief Complaint Psychiatric episode Disposition Transported No Lights/[place] Dispatch Reason Psychiatric Problem/Abnormal Behavior/Suicide Attempt Transported To [facility] Narrative [facility] medic 36 dispatched to a longterm facility for a suicidal patient. [facility] [address] [place] [address] EMS Patient Care Report Name: DINORAH BOND Room #: REG Annalisa#: [id number] Admission: 10/20/21 Attend Phys: Discharge: Date of : 43 Report #: [id number] Upon arrival found pt seated in the social media director's office. Facility staff reported that pt had a psychiatric episode and had thrown all of her belongings all over her room. Pt moved to the EMS cot under her own power and was secured with seatbelts. Pt was taken to and loaded into the ambulance without incident. Pt was transported to [facility] while vital signs were monitored. Pt was unloaded from the ambulance and taken in to ER where report was given and care of the pt and posession of her belongings was turned over to ER staff without incident. Initial Vitals @11:16P: 79,R: 14,BP: 148/121,Pain: 0/10,GCS: 15,Glucose: 187,SpO2: 95,Revised Trauma: 12, @11:18P: 76,R: 14,BP: 124/59,Pain: 0/10,GCS: 15,CO: 0,SpO2: 93,Revised Trauma: 12, @11:23P: 77,R: 14,BP: 116/64,Pain: 0/10,GCS: 15,CO: 0,SpO2: 92,Revised Trauma: 12, Assessments @11:13MENTAL:Confused,SKIN:No Abnormalities,HEENT:LUNG SOUNDS:ABDOMEN:PELVIS//GI:EXTREMITIES:PULSE:NEURO:No Abnormalities, Impression Behavioral/psychiatric episode Procedures @11:10 ALS Assessment Response: UnchangedSucceeded @11:23 BLS Assessment Response: Unchanged @11:24 Stretcher Response: Unchanged Timeline 10:54,Call Received 10:54,Dispatch Notified 10:56,Dispatched 10:58,En Route 11:08,On Scene 11:08,At Patient 11:10,ALS Assessment,Response: UnchangedSucceeded, 11:16,BP: 148/121 M,PULSE: 79,RR: 14 R,SPO2: 95 Ox,ETCO2: ,B,PAIN: 0,GCS: 15, 11:18,BP: 124/59 M,PULSE: 76,RR: 14 R,SPO2: 93 Ox,ETCO2: ,BG: ,PAIN: 0,GCS: 15, 11:22,Depart Scene 11:23,BP: 116/64 M,PULSE: 77,RR: 14 R,SPO2: 92 Ox,ETCO2: ,BG: ,PAIN: 0,GCS: 15, 11:23,BLS Assessment,Response: Unchanged 11:24,Stretcher,Response: Unchanged 11:35,At Destination [address] [address] EMS Patient Care Report Name: DINORAH BOND Room #: REG ANIL Fang#: [id number] Admission: 10/20/21 Attend Phys: Discharge: Date of : 43 Report #: [id number] 11:48,Call Closed Disclaimer v1.1 Copyright 2021 [employer] This EMS Care Summary contains data elements from the applicable legal record (which may be displayed differently). It is designed to provide pertinent information for the following purposes: continuity of care, clinical quality, and state data reporting. The complete legal record is available to ED staff and administrators of the receiving hospital in [facility]'s Patient Tracker. All data is provided "as is."
[~2021-10-20 11:39] MED LIST changes: +LEXAPRO20 MG PO; +NAMENDA 5 MG TAB5 M1 PO; +NEURONTIN 300M300 M2 PO; +PEPCID20 MG PO; +TRAZODONE HCL50 MG PO; +VITAMIN B-12500 MCG PO; +VITAMIN D325 MC2 PO
[2021-10-20] MEDS ORDERED: LIPITOR40 MG PO (11:52)
[2021-10-20] MEDS ORDERED: NUPLAZID34 MG PO (11:53)
[2021-10-20] MEDS ORDERED: RISPERDAL25 MG/2 ML IM (11:56)
[2021-10-20] MEDS ORDERED: ZYPREXA5 MG PO (11:56)
[2021-10-20 12:12] LABS: HEMATOCRIT 36.7 % (37.0-47.0); HEMOGLOBIN 11.9 gm/dL (12.0-15.0); MCH 24.7 pg (26.0-34.0); MCHC 32.3 g/dL (28.0-37.0); MCV 76.6 fL (80.0-100.0); RBC 4.8 mil/uL (4.20-5.00); WBC 7.3 thou/uL (4.0-11.0)
[2021-10-20 12:26] LABS: ANION GAP 12 mmol/L (7-16); BUN 13 mg/dL (7-18); CALCIUM 9.4 mg/dL (8.5-10.1); CHLORIDE 108 mmol/L (98-107); CO2 25 mmol/L (21-32); CREATININE 0.9 mg/dL (0.6-1.0); GLUCOSE 125 mg/dL (74-106); POTASSIUM 3.6 mmol/L (3.5-5.1); SODIUM 145 mmol/L (136-145)
[2021-10-20 12:29] LABS: ALBUMIN 3.2 g/dL (3.4-5.0); SALICYLATE < 2.8 mg/dL (2.8-20.0); SGOT 23 U/L (15-37); SGPT 20 U/L (14-59); TOTAL BILIRUBIN 0.7 mg/dL (0.2-1.0); TOTAL PROTEIN 6.6 g/dL (6.4-8.2)
[2021-10-20 13:58] LABS: URINE BILIRUBIN NEGATIVE (Negative); URINE BLOOD NEGATIVE (Negative); URINE CLARITY CLEAR; URINE COLOR YELLOW; URINE GLUCOSE-RANDOM* NEGATIVE (Negative); URINE KETONES NEGATIVE (Negative); URINE LEUKOCYTES-REFLEX NEGATIVE (Negative); URINE NITRITE-REFLEX NEGATIVE (Negative); URINE PROTEIN (DIPSTICK) NEGATIVE (Negative)
[2021-10-20 14:16] LABS: AMP/METHAMP Negative (Negative); BARBITURATES Negative (Negative); BENZODIAZEPINES Negative (Negative); COCAINE Negative (Negative); METHADONE Negative (Negative); OPIATES Negative (Negative); PCP Negative (Negative)
[2021-10-20 16:35] VITALS: BP 133/58
== END 2021-10-20 16:35 ==
LOC: ER 11:39
PROVIDERS: Emergency Medicine; Nurse Practitioner Family
DX: F02.80 Dementia in other diseases classified elsewhere, unspecified severity, without behavioral disturbance, psychotic disturbance, mood disturbance, and anxiety (principal); Z20.822 Contact with and (suspected) exposure to COVID-19; I10 Essential (primary) hypertension; E78.5 Hyperlipidemia, unspecified; J44.9 Chronic obstructive pulmonary disease, unspecified; K21.9 Gastro-esophageal reflux disease without esophagitis; E11.9 Type 2 diabetes mellitus without complications; G20 Parkinson's disease; Z85.3 Personal history of malignant neoplasm of breast; Z85.118 Personal history of other malignant neoplasm of bronchus and lung; Z79.899 Other long term (current) drug therapy; Z79.891 Long term (current) use of opiate analgesic; Z79.82 Long term (current) use of aspirin; Z88.8 Allergy status to other drugs, medicaments and biological substances

== ENCOUNTER 2021-10-20 16:25 | Inpatient (IN) | payer OTHER ==
[~2021-10-20] VITALS: Ht 167.6 cm; Wt 50.9 kg
[~2021-10-20 16:25] MED LIST changes: +LIPITOR40 MG PO; +NUPLAZID34 MG PO; +RISPERDAL25 MG/2 ML IM; +ZYPREXA5 MG PO
[2021-10-20 17:00] VITALS: BP 143/66
--- NOTE | 2021-10-20 18:25 | NUR ---
[age] YE[age] OLD FEMALE ADMITTED TO [facility] ROOM 522B. PT WAS BROUGHT INTO THE ER FROM HER RETIREMENT DUE TO AGGRESSIVE, DESTRUCTIVE BEHAVIOR. PT WAS ALSO WALKING AROUND NAKED AND NOT TAKING HER MEDICATIONS. PT ALERT AND ORIENTED TIMES THREE. VSS. DENIES SI/HI/AH/VH/PAIN/SOA. PT UP AB BRADY WITH STEADY GAIT. TOLERATED DINNER. SPOKE WITH PT SUKUMAR BLANCHARD(SISITER) TO GET VERBAL CONSENT FOR TREATMENT.
[2021-10-20 19:24] VITALS: BP 126/68
--- NOTE | 2021-10-21 00:03 | NUR ---
ASSUMED CARE ON 10/20/21 @ 1900, IN BED AND AWAKE, LOOKING OUT THE WINDOW, TALKED A LOT ABOUT FIRES, POSSIBLE VISUAL HALLUCINATIONS SEEING FIRES. CONFUSED CHATTER ABOUT CHICKENS, FIRE AND RANDOM VERBAGE THAT WAS NONSENSICAL. A&OX1 TO SELF ONLY. DENIES SI/HI, UNABLE TO FOCUS AND ANSWER OTHER MENTAL HEALTH QUESTIONS. LOW FALL RISK, WILL CONTINUE TO MONITOR FOR SAFETY AND COMFORT PER UNIT PROTOCOL.
[2021-10-21 09:34] VITALS: BP 137/58
--- NOTE | 2021-10-21 16:17 | NUR ---
Met with patient in room. Student, Melisa, was also present. Patient was groomed and appeared to be stated age. Patient was agile, crossing her legs on the bed with no assistance and appearing to not be in pain. The patient ambulated without the use of a walker. The patient was not oriented to time, place or situation. When asked if she knew where she was, patient initially expressed not knowing but then stating the "suicide place". Patient reports always having some thoughts of hurting self but not having a current plan. When asked where was she born, patient replied "[place]". Patient reports to not having children and being . 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 When asked what does she enjoy doing, she stated "sugaring up things". The patient's tray was brought to the room. The patient opened the container, opened her drink and started pouring the drink on the food. The SW intervened saying that that is for her to drink. The patient immediately stops pouring the drink and starts to drink it. The patient was calm and pleasant.
[2021-10-21 19:21] VITALS: BP 118/69
--- NOTE | 2021-10-22 01:03 | NUR ---
At onset of cloth bin packer pt was sitting in day room coloring. This shift pt was alert and oriented x2. Pt spent free time in the evening watching TV, coloring, and filing her nails. Pt was compliant with medication and vital signs. Pt had a broad affect and was overall calm, pleasant and cooperative. Pt denied SI, HI, AVH, depression and anxiety. Pt made her requests known appropriately. Pt is low fall risk. Will continue to monitor.
[2021-10-22 05:57] LABS: ABSOLUTE NEUTROPHILS 5.7 thou/uL (1.4-8.2); BASOPHILS 0.5 % (0.0-2.0); EOSINOPHILS 2.3 % (0.0-3.0); HEMATOCRIT 35.6 % (37.0-47.0); HEMOGLOBIN 11.3 gm/dL (12.0-15.0); LYMPHOCYTES 16.1 % (24.0-44.0); MCH 24.7 pg (26.0-34.0); MCHC 31.7 g/dL (28.0-37.0); MCV 77.8 fL (80.0-100.0); MONOCYTES 6.4 % (1.0-8.0); PLATELET COUNT 171 thou/uL (150-400); POLYS 74.7 % (36.0-66.0); RBC 4.58 mil/uL (4.20-5.00); RDW 16.3 % (10.5-14.5); WBC 7.7 thou/uL (4.0-11.0)
[2021-10-22 06:25] LABS: CHOLESTEROL 135 mg/dL (<200); HDL CHOLESTEROL 49 mg/dL (>40); LDL CHOLESTEROL 73 mg/dL (<100); TC:HDL 2.8 Ratio (Not establshd); TRIGLYCERIDE 65 mg/dL (<150); VLDL 13 mg/dL (<40)
[2021-10-22 10:30] VITALS: BP 112/49
--- NOTE | 2021-10-22 13:37 | NUR ---
Alert and orientated X1. Calm, cooperative and compliant. Denies SI/HI. Ambulates with regular, steady gait. Breath sounds clear. Reg HR auscultated. Color pink with brisk capillary refill and palpable peripheral pulses. No edema noted. Independent with voiding. Active bowel sounds over soft, rounded abdomen.
--- NOTE | 2021-10-22 16:57 | NUR ---
Check in with patient. Patient wanted a sheet of paper. Patient reported to wanting to color but also something more difficult than coloring. The provided the patient with a coloring sheet and a word search. The patient was very happy and sat down to start completing.
[2021-10-22 19:46] VITALS: BP 119/48
--- NOTE | 2021-10-23 02:05 | NUR ---
PATIENT AAOX1 AND EXHIBITS SOME SHORT TERM MEMORY ISSUES. PT STATES THAT SHE WAS HAVING SOME BACK PAIN IN HER LOWER LEFT SIDE. SHE TOOK TYLENOL WHICH SHE STATES HELPED RELIEVE HER ISSUE. SHE PACED THE FLOOR FOR A FEW HOURS BEFORE GOING TO BED. SHE WAS CALM AND COOPERATIVE DURING THIS SHIFT. WAS CONFUSED ABOUT WHAT SHE WAS TAKING GABAPENTIN FOR. NO S/S OF DISTRESS NOTED. WILL CONTINUE TO MONITOR.
[2021-10-23 07:12] LABS: GLYCOHEMOGLOBIN (HGB A1C) 5.9 % (4.8-5.6)
[2021-10-23 09:19] VITALS: BP 102/49
--- NOTE | 2021-10-23 09:52 | H ---
[facility] [place] [address] HISTORY AND PHYSICAL Name: DINORAH BOND Room #: 522B-B ADM IN M.R.#: [id number] Admission: 10/20/21 Attend Phys: Gorge Anne DO Discharge: Date of : 43 Report #: [id number] THIS REPORT FOR: cc: Mike Walls MD, Srinath MD Kerstein,Gorge Reed DO ~ DATE OF SERVICE: 10/21/2021 INPATIENT PSYCHIATRIC EVALUATION SUMMARY ATTENDING PSYCHIATRIST: Gorge Anne DO MEDICAL CONSULTANTS: Roro Saunders APRN and Db Penaloza MD REASON FOR PSYCHIATRIC ADMISSION: Behavioral disturbance at a nursing facility. CHIEF COMPLAINT: Unspecified. SOURCES OF INFORMATION: Brief interview with the patient; medical records here at [place]; telephone conversation with her sister and Cynthia PATINO. HISTORY OF PRESENT ILLNESS: This is a 76-year-old female known to me from admission in 07/2021, sent out from [facility]. She is under Dr. Chau and follow with his care there. The patient reportedly "destroyed" her room, was not speaking. She has a medical history that includes hypertension, anemia, COPD, GERD, type 2 diabetes mellitus, lung cancer, breast cancer, and dementia. Parkinson's has been loosely diagnosed, but I remain skeptical she actually has it. She was brought in due to destroying her room, running around naked in the nursing facility. The patient was also mute with her caregivers at [facility]. Apparently, she had been accepted as an inpatient at [facility]; however, due to weather, the ambulance was diverted here. The patient will answer simple questions in the ER, but will not elaborate on her visit. She is unable to tell us why she is here. She did know her name and date but is unable to state the correct year in the ER. On my interview today, patient was cheerful, pleasant, did not have recollection of destroying her room or being otherwise in a state of duress. PSYCHIATRIC HISTORY: Includes major depressive disorder, schizophrenia, anxiety, dementia. PAST MEDICAL HISTORY: Hypertension, vitamin D deficiency, anemia, hyperlipidemia, COPD, GERD, diabetes mellitus type 2, insomnia, breast cancer, COVID on 09/29/2021. HOME MEDICATIONS: Include Lexapro 20 mg daily, trazodone 50 mg at bedtime, famotidine 20 mg oral daily. She also was previously getting gabapentin [address] [address] HISTORY AND PHYSICAL Name: DINORAH BOND Room #: 522B-B ADM IN M.R.#: [id number] Admission: 10/20/21 Attend Phys: Gorge Anne DO Discharge: Date of : 43 Report #: [id number] t.i.d. that was discontinued at the senior living. Memantine 5 mg twice a day, docusate, cyanocobalamin, cholecalciferol. There pimavanserin was never started. She has previously been on Sinemet, but that was discontinued prior to admission. ALLERGIES: BUSPAR. SOCIAL HISTORY: No alcohol. No recreational drug use. REVIEW OF SYSTEMS: Not able to be completed. LABORATORY DATA: Hematology: White count 7.3, H and H 11.9 and 36.7, platelet count 159. Sodium 145, potassium 3.6, chloride 108, bicarbonate 25, anion gap 12, BUN 13, creatinine 0.9, estimated GFR 61, glucose 125, calcium 9.4. Total bilirubin 0.7, AST 23, ALT 20, alkaline phosphatase 112, total protein 6.6. Albumin 3.2, which is low. TSH is 1.140. Urinalysis negative except for a few bacteria. TOXICOLOGY: Salicylate is less than 0.8, acetaminophen less than 2, otherwise negative. Serum alcohol less than 10. SEROLOGY: COVID-19 PCR not detected. IMAGING THIS ADMISSION: Head CT done on 10/20 showed no acute intracranial abnormalities, age-related findings included moderate to severe cerebral and cerebellar volume loss, atherosclerosis and mild chronic central white matter microvascular ischemia and there was some sinusitis. PHYSICAL EXAMINATION: VITAL SIGNS: Temperature 35.7, pulse 71, respirations 17, BP 137/50, O2 sat 96%. GENERAL: Seated in chair, short hair, wearing hospital gown. MENTAL STATUS EXAMINATION: Well-developed female, appearing slightly younger than stated age. Attention fair. Concentration limited. Speech normal in rate. Thought process: Linear and goal directed. Thought content: Focused on her peers and activities she did once stable. Denied SI, HI. Denied auditory, visual, or tactile hallucinations. Denied hopelessness, helplessness. Mood and affect was euthymic, somewhat inappropriate for situation and congruent. Insight and judgment were impaired. Fund of knowledge is diminished. FORMULATION: A 76-year-old female with known history of major neurocognitive disorder, admitted to senior Behavioral Health Unit. [address] [address] HISTORY AND PHYSICAL Name: DINORAH BOND Room #: 522B-B ADM IN M.R.#: [id number] Admission: 10/20/21 Attend Phys: Gorge Anne DO Discharge: Date of : 43 Report #: [id number] PLAN: Admitted via DPOA. Evaluate, stabilize, obtain collateral. Regarding her current medications, it was unclear exactly why her regimen was changed. When I talked to her sister today, she was unaware. She was not appearing overtly psychotic, so I elected to restart her on gabapentin 200 mg 3 times a day. We will go ahead and increase that to 300 mg 3 times a day for tonight until tomorrow. Continue famotidine 20 mg daily, atorvastatin 40 mg daily. Otherwise, house PRNs. ESTIMATED LENGTH OF STAY: 10-14 days. STRENGTHS: She is insured, has a placement. WEAKNESSES: Aggressive dementia. <ELECTRONICALLY SIGNED> By: Gorge Anne DO 10/23/21 [id number] Gorge Anne DO /nt
--- NOTE | 2021-10-23 11:59 | NUR ---
PATIENT CARE ASSUMED AT 0700 - APPROACHED AND VERY PLEASANT AND AGREEABLE. ALERT AND ORIENTED X 1 - DID NOT KNOW DATE - DAY - OR MONTH WHEN QUESTIONED. DENIES ANY S/I OR H/I WHEN ASKED. ACKNOWLEDGED DR. SCHILLING WHEN HE ARRIVED. NO AGIATATION OF AGGRESSION NOTED. CALM AND REDIRECTABLE. AMBULATORY - EATING MEALS - PARTICIPATED IN MORNING GROUPS. CONFUSION OBSERVED - NEEDING HELP. WILL CONTINUE TO MONITOR PATIENT FOR SAFETY AND TO ADDRESS ANY CONCERNS IF NEEDED.
[2021-10-23 20:03] VITALS: BP 140/66
--- NOTE | 2021-10-24 05:04 | NUR ---
Assumed care of pt at 1900. Pt calm et cooperative this shift. Took medications whole without difficulty. Ambulates the halls ad vijay with steady gait. Socialized with peers in dayroom watching TV until HS. VSWNL. Health assessment with no abnormalities noted this shift. Denies SI/HI at present time. Currently resting in bed with eyes closed. Will coontinue to monitor per unit protocol.
[2021-10-24 07:33] VITALS: BP 125/53
[2021-10-24 09:00] VITALS: BP 125/53
--- NOTE | 2021-10-24 14:33 | NUR ---
Updates faxed to [facility]
--- NOTE | 2021-10-24 15:34 | NUR ---
Assumed pt care from overnight shift this am, client presented confused but pleasant at this time. Client was oriented to person and place, but was disoriented to all else when assessment was done. Pt denied depression and anxiety at this time, stating that she was doing "alright as ever" and denied hallucinations at this time as well, stating that she "couldn't imagine having those." Pt denied any si/hi at this time. Pt denied pain as well. Pt lung sounds clear. Bowel sounds active. Last BM 10/23/21. Pt voices no other concerns, and continues to walk about unit. Steady gait- does not want to use walker when asked. Disoriented, but pleasant and cooperative. Participating in groups. No further concerns.
[2021-10-24 19:13] VITALS: BP 105/60
--- NOTE | 2021-10-25 05:56 | NUR ---
patient aox2 confused and forgetful. patient interacts well with peers. patient had a flat affect, poor eye contact, good grooming and hygiene.patient ambulates in the unit with steady gaits. patient is up at vijay. patient in bed asleep at this time breathing regular and unlaboured.
[2021-10-25 08:10] VITALS: BP 109/61
[2021-10-25 09:15] VITALS: BP 109/61
[2021-10-25 09:46] VITALS: BP 109/61
--- NOTE | 2021-10-25 16:24 | NUR ---
This RN spoke to pt's facility this morning who stated pt tested positive for COIVD on 09/29/21. This RN asked for a copy to be faxied which has since been placed in pt's chart.
--- NOTE | 2021-10-25 16:31 | NUR ---
Patient positive for covid September 28, 2021. Confirmed by Jocelyne Ashley at [facility].
--- NOTE | 2021-10-25 17:44 | NUR ---
Assumed pt care this morning from overnight shift. Pt was pleasant but confused at this time, and presented oriented to self only during this time. Pt denied anxiety, but stated that she had depression with a happy smile on her face, stating that that "it was a silly notion." Pt likewise answered yes on suicidal thoughts, stating "all the time" happily, while following up with mentioning that it was a "silly notion again." No plan was dicerned from this statement, and client stated that she had no plan at this time, while smiling. Client denied homicidal ideation, but stated, "I won't tell if you won't" and smiled. Client smiling and humming to herself as she said this, and once again stated no plan. Client denied pain. Client lung sounds clear and diminished. Bowel sounds active. Client has been taking meds whole. Actively joined group and voiced wanting to "be as tall as a [employer] tree." Client refuses to use walker during this shift. States that she can ambulate without it. Has not been listening to staff, and is disoriented to own abilities, though has steady gait. Client later found to have tried to have taken shower by herself. Client had bathroom wet and water on the floor. Caught this behavior during q12 minute rounds by staff. Client had attempted to wash hair by self but was unsuccessful. Bathroom cleaned at this time, and client reoriented. Client continues to need to be reoriented at this time, and is in activity area being monitored q12 min rounds. No further concerns at this time.
[2021-10-25 22:35] VITALS: BP 139/66
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
--- NOTE | 2021-10-26 05:28 | NUR ---
PT WAS AWAKE AND RESTLESS MOST OF THE NIGHT. EVEN AFTER TAKING TRAZODONE, SHE DID NOT GO TO SLEEP UNTIL AROUND 0345 THIS MORNING. PT IS VERY SOCIAL WITH OTHER PATIENTS WHEN AWAKE. SHE IS PLEASANT AND EASY TO REDIRECT. HOWEVER, SHE HAS A VERY SHORT ATTENTION SPAN WHEN REDIRECTED TO NEW ACTIVITIES. PT DID STATE THAT IT HELPS HER TO WRITE DOWN HER THOUGHTS WHEN SHE HAS NEGATIVE FEELINGS. WILL CONTINUE TO MONITOR FURTHER.
[2021-10-26 09:58] VITALS: BP 120/61
[2021-10-26 11:49] VITALS: BP 120/61
--- NOTE | 2021-10-26 15:00 | NUR ---
Resummed care @0700; Patient located in the [facility] area along side her peers; No S/O acute distress noted; A&O*2; Current denial of SI/HI/AVH; although KYLE Cardozo informed SOLAR POWER INSTALLER of patient stating she is having current SI; when asked if patient had a plan - Patient stated she was going to "poke" herself in the wrist and a mole would appear; Patient presents, [id number]-impulsive; SOLAR POWER INSTALLER has visualized patient going around the unit and removing other patients name tags from the hallway doorjams; Patient has also been visualized in other patients rooms, male & female. - When asked what she was doing, patient stated " Were just hanging out. " Precautions have been taken on the unit to avoid this conflict; Patient is medication/meal compliant; Denied pain at this time; Ambulation up ad-vijay, gait visualized steady with a fast pace; Patient is redirectable at times, although throughout the day when the animal control officer have attempted redirection, the patient has become sarcastic with staff. Laughing, and mimic the FORM SETTER STEEL FORMS's; Low-Fall precautions are in place at this time; VSS on roomair; Will continue to monitiot per [facility] protocol;
--- NOTE | 2021-10-26 15:39 | NUR ---
Updates faxed to [facility] with indication of discharge review tomorrow, Monday.
--- NOTE | 2021-10-26 16:38 | NUR ---
Primary nursing care done by Aiden Houser LPN Alert and orientated to person and place. Calm, cooperative and compliant. Confused and restless at times. When asked about SI she stated that sometimes she thought about it but she would poke herself and then it would turn into a mole. Could not give more info. Denies HI. Restless at times and trying to climb over couch, redirectable. Breath sounds clear. Reg HR auscultated. Color pink with brisk capillary refill and palpable peripheral pulses. No edema noted. Independent with voiding. Active bowel sounds over soft, flat abdomen. Ambulates with regular, steady gait.
[2021-10-26 19:19] VITALS: BP 139/68
[2021-10-26 20:54] VITALS: BP 134/68
--- NOTE | 2021-10-26 21:48 | NUR ---
RESUMMED CARE FROM DAY SHIFT THIS EVENING, PATIENT SITTING IN DAY ROOM TALKING WITH OTHER PATIENTS. PATIENT ALERT ORIENTED TIMES 3 SHE STATES SHE DID NOT KNOW SHE WAS MANIC. PATIENT DENIES SI/HI/AH/VH AT PRESENT PATIENT STATES HER ANXIETY IS A 6 AND DEPRESSION A 3. PATIENT TEARFUL TALKING WITH ME STATING SHE DOES NOT HAVE FAMILY TO TAKE CARE OF HER. SHE WANTS TO LEAVE BUT IS AWAITING PLACEMENT. PATIENTS ABDOMEN SOFT BOWEL SOUNDS PRESENT PATIENTS LUNGS CLEAR DESPITE OCCASSIONAL COUGH. PATIENT CALM COOPERATIVE WILL CONTINUE TO MONITOR PATIENT FOR SAFETY AND BEHAVIORS.
--- NOTE | 2021-10-27 06:37 | NUR ---
PT RESTING IN BED AT THIS TIME.PT HAVE BEEN SLEEPING MOST OF THE NOC.DENIES ANY DISTRESS.NO CHANGES NOTED OVERNIGHT.
[2021-10-27 10:00] VITALS: BP 109/49
[2021-10-27 10:28] VITALS: BP 109/49
--- NOTE | 2021-10-27 17:10 | NUR ---
Assumed pt care from overnight shift this am. Pt presented calm and sleepy during this time, and was in bed asleep for first two hours of shift. Pt did not want to eat breakfast, or do assessment until around 10am as pt voiced feeling tired when prompted. Pt left to rest in room at this time. When pt was prompted again for medications, pt was noted to be in bathroom. Pt helped with brief change during this time, and was reoriented. Pt became restless and wandering after this time. Pt was constantly redirected to stay in chair or to use walker when getting up. Pt would not listen to staff and try to climb chairs or put feet on table during this time. Pt was unable to answer orientation questions, and was oriented to self only during this time. Pt presented with erratic and wandering behavior, and was positioned closely to staff and various coping skills and techniques used to soothe pt at this time to help alleviate restlessness. Pt still unable to be redirected after numerous attempts. PRN 1mg ativan and 5 mg haldol given at 1433 to help with this, as pt was becoming increaingly agitated and hostile, and was noted to have hematuria when toileted. Lap sergio ordered. Lap sergio d/c after pt had calmed down and stopped trying to reach for chairs and table. Dr. Emerson called at this time and Dr. Anne paged. UA and straight cath orders obtained from Dr. Anne. Currently have no obtained staight cath at time of this note as pt has been in gerichair resting after injection. No further concerns at this time.
[2021-10-27 19:19] VITALS: BP 111/46
--- NOTE | 2021-10-28 00:21 | NUR ---
At onset of field ironworker pt was sleeping in mey chair in day room. Pt was slouched over sleeping. Pt recieved IM haldol and ativan in the afternoon during day shift. Pt was drowsy and lethargic. Pt was able to resond to her name and when asked how she was doing pt stated "same old, same old." Pt was helped to her bed by OPERATOR ASSISTANT I CEMENTING. Pt was asleep when RN went to assess her. Pt would not wake up enough to safety swallow her HS medications. RN help meds. Unable to assess orientation, SI, HI and AVH due to drowsiness. Fall precautions are in place. Will continue to monitor.
[2021-10-28 05:27] LABS: URINE BILIRUBIN NEGATIVE (Negative); URINE BLOOD 3+ (Negative); URINE CLARITY SL CLOUDY; URINE COLOR YELLOW; URINE GLUCOSE-RANDOM* NEGATIVE (Negative); URINE KETONES 1+ (Negative); URINE NITRITE-REFLEX NEGATIVE (Negative); URINE PROTEIN (DIPSTICK) 1+ (Negative); URINE SPECIFIC GRAVITY 1.025 (1.005-1.035)
[2021-10-28 05:30] LABS: URINE LEUKOCYTES-REFLEX 1+ (Negative)
[2021-10-28 05:53] LABS: CASTS None Seen /LPF (None Seen); CRYSTALS None Seen /LPF (None Seen); MUCUS 4-6 Moderate strn/LPF (None Seen); SQUAMOUS 4-10 Moderate /LPF (0-3); URINE RBC >20 Many /HPF (NONE SEEN); WBC CLUMPS Few (None Seen)
[2021-10-28 09:56] VITALS: BP 115/59
[2021-10-28 12:52] VITALS: BP 115/59
--- NOTE | 2021-10-28 14:18 | NUR ---
Alert and orientated to person and time. Denies SI/HI. Sitting in recliner. Calm and cooperative, currently visiting with dogs. Breath sounds clear. Reg HR auscultated. Color pink with brisk capillary refill and palpable peripheral pulses. No edema noted. Brief dry. Active bowel sounds over soft, flat abdomen. Able to stand and take several steps, gait slightly unsteady.
--- NOTE | 2021-10-28 14:28 | NUR ---
Check in with patient. Patient was in dayroom in Felicita-chair. Patient reported to doing well. Patient attempted to get out of chair to go see the dogs that was in the dayroom but was informed that she should remain seated and the dogs would come to her.
--- NOTE | 2021-10-28 15:50 | NUR ---
Resummed care @0700; Patient was located in the dinning room along side her peers. No S/O acute distress noted. Patient presents calm, cooperative, pleasent. Impulsive at times, patient will climb out of her chair unsafely thinking it is funny. Patient denied SOB-CP-Pain. Denied SI/HI/AVH. OUTSIDE BARREL LATHE OPERATOR does note per past expericences of caring for this patient a decrease in mental status. A&O*1 confused-forgetful. Affect presents flat, and drowsy. Lung sounds clear bilaterally; BSP*4-NT-ND; Gait noted unsteady with ambulation; V/S present Hypotensive; Hematuria is present in patients urine; UA collected overnight, +UTI - awaiting culture results. MD Emerson informed and antibiotics started. High-Fall risk precautions are in place, will continue to monitior per [facility] protocol.
[2021-10-28 19:28] VITALS: BP 119/46
--- NOTE | 2021-10-29 05:13 | NUR ---
PATIENT AAOX2 RESTING IN THE COMMON AREA. STATES THAT SHE WAS TIRED AND WANTED TO TAKE HER MEDICATION AND GOT TO BED. SHE TAKES HER MEDICATIONS PRESCRIBED. SHE DENIES PAIN OR NEEDS. SHE WAS ASSISTED TO HER ROOM BY BHT. NO S/S OF DISTRESS. WILL CONTINUE TO MONITOR FPR CHANGES IN PATIENT STATUS.
[2021-10-29 08:54] VITALS: BP 113/62
--- NOTE | 2021-10-29 11:09 | NUR ---
UP IN GERICHAIR IN DAYROOM THIS AM-GAIT IS UNSTEADY WITH NOTED BALANCE [id number] IN HALLWAY WITH USE OF ROLLER WALKER AND ASSIST FROM NURSING AND ABLE TO TOLERATE WALKING SHORT DISTANCES-IS HIGH FALLS RISK D/T POOR JUDGEMENT/INSIGHT/IMPULSE CONTROL ATTEMPTD TO GET UP WITHOUT ASSISTANCE DESPITE BEING TOLD MULTIPLE TIMES NOT TO. REQUIRES CONSTANT SUPERVISION D/T ABOVE NOTED TO PREVENT FALLS. DID VOID LARGE AMOUNT AND HAD BM THIS AM-DENIES PAIN/DISCOMFORT DURING AM ASSESSMENT. IS NOTED TO HAVE SOME DROOLING WHEN GIVEN LIQUIDS-COUGH NOTED AFTER EATING/DRINKING-MD NOTIFIED AND ORDERS RECEIVED. PLEASANT AND COOPERATIVE WITH REQUESTS FROM NURSING STAFF. IS ORIENTED TO NAME ONLY.
[2021-10-29 14:42] LABS: ABSOLUTE NEUTROPHILS 5.9 thou/uL (1.4-8.2); BASOPHILS 0.2 % (0.0-2.0); EOSINOPHILS 1.1 % (0.0-3.0); HEMATOCRIT 36.6 % (37.0-47.0); HEMOGLOBIN 11.6 gm/dL (12.0-15.0); LYMPHOCYTES 9.7 % (24.0-44.0); MCH 24.9 pg (26.0-34.0); MCHC 31.7 g/dL (28.0-37.0); MCV 78.6 fL (80.0-100.0); MONOCYTES 5.4 % (1.0-8.0); PLATELET COUNT 137 thou/uL (150-400); POLYS 83.6 % (36.0-66.0); RBC 4.66 mil/uL (4.20-5.00); RDW 16.9 % (10.5-14.5)
[2021-10-29 14:48] LABS: CALCIUM 9.2 mg/dL (8.5-10.1); CREATININE 0.8 mg/dL (0.6-1.0); POTASSIUM 3.9 mmol/L (3.5-5.1)
--- NOTE | 2021-10-29 15:30 | NUR ---
INCREASINGLY RESTLESS ATTEMPTING TO GET UP FROM GERICHAIR MULTIPLE TIMES SINCE 1430-ATTEMPT TO DIRECT TOWARD GROUP ACTIVITY AND GIVEN ROCK AND PAINT SND DESPITE HAVING STAFF SIT NEXT TO HER AND PROVIDE CONSTANT QUEING/REDIRECT UNABLE TO BE ENGAGED IN GROUP-GIVEN TYLENOL 650MG PO PRN AT 1500 I HOPES TO DECREASE RESTLESSNESS-ALTHOUGH WHEN ASKED IF HAVING PAIN STATES "YES IN THE ASS" AND BEGINS TO LAUGH LOUDLY. AT 1515 AM BULATED IN HALLWAY IN HOPES OF DECREASING AGITATION SHE WAS ATTEMPTING TO PULL AWAY FROM STAFF AND ENTER A PEERS ROOM STATING "I AM GOING TO LAY DOWN"BECAME COMBATIVE AND REQUIRED 2 STAFF TO ASSIST BACK TO CHAIR. HAS REMOVED CHAIR ALARM PAD FROM UNDER SELF X3. DR SCHILLING INFORMED OF ABOVE AND RISPERDAL 0.5MG GIVEN PO X1 AT 1515.
[2021-10-29 19:44] VITALS: BP 112/50
--- NOTE | 2021-10-29 23:09 | NUR ---
At onset of network cabler pt was sitting in mey chair in day room next to milk house worker. Pt was awake and pulling at her clothes. Pt did have a lap sergio around her waste that was fastened in the front. Pt was restless, impulsive. Speech was soft. Pt made poor eye contact and affect was constricted. Pt was compliant with medication and vital signs. Pt was oriented to self and place. Pt gave wrong date and could not accurately describe situation. Pt stated to RN that she was in a good mood, but wanted to strip her clothes off. Pt was placed in bed twice by milk house worker but pt would not stay in bed. Pt is a high fall risk due to impulsiveness and weakness. Fall precautions are in place. Will continue to monitor.
[2021-10-30 12:32] VITALS: BP 141/74
--- NOTE | 2021-10-30 14:36 | NUR ---
Resummed Care @0700; Patient located in her room resting comfortably. No acute distress noted. A&O*1- Per prior cares of this patient, SOFTWARE TEST DEVELOPER notes an increase in AMS. Reviewed patient +UTI and Labs. Patient denied SI/HI/AVH. Denied pain, CP. Complaints of increased SOB & increased dry cough. XRAY was completed 10/29/21. Patient presents calm, cooperative, drowsy, lethargic. V/S presented hypertensive 141/74, otherwise stable. Lung sounds clear, diminsihed, with non-productive cough present. Gait visualized shuffled, weak, although steady. Patient has to be redirected to use walker multiple times throughout the day. Patient did not come out of her room until 1100; High-fall precautions in place, will continue to monitior per [facility] protocol;
--- NOTE | 2021-10-30 23:28 | NUR ---
At onset of rn night pt was sitting in chair awake in day room. Pt was sitting in chair next to the social service liaison due to being impulsive and a fall risk. This shift pt was alert and oriented to self, place, and situation. Pt did not give the correct date. Pt was compliant with medication and vital signs. Pt is not very cooperative when told to stay seated or to wait for staff before ambulating. Pt was placed in bed twice and would get out of bed. Pt was placed in mey chair for short periods of time, but did eventually fall alseep in bed. Pt denied SI stating "no, I don't have the time." Pt denied HI. Pt endorsed visual hallucinations stating she sees things "swirling around" her. Overall pt was calm and pleasant with RN, impulsive and confused at times. Pt is high fall risk. Fall precautions are in place. Will continue to monitor.
[2021-10-31 09:50] VITALS: BP 141/74
--- NOTE | 2021-10-31 13:18 | NUR ---
Assumed pt care this morning from overnight shift. Pt presented sleepy during this shift, and stated that she wanted to sleep during breakfast. Pt slept during this time, but was prompted for groups. Pt presented alert and oriented to self only during this time, and was reminded to ask staff for assistance and use walker when trying to get up as pt attempted to stand up several times without doing either. Pt voiced understanding at this time. Pt took all medications whole and tolerated well. No dep/anx voiced. Denied si/hi at this time. States that she "sees things" on occasion but would no elaborate when asked. Currently in activity area participating in group. No further concerns at this time.
--- NOTE | 2021-10-31 16:05 | NUR ---
Updates faxed to the facility
--- NOTE | 2021-10-31 17:33 | NUR ---
HAS BEEN ATTEMPTING TO CRAWL OVER SIDE OF GERICHAIR-WHEN PROCESS HELPER ATTEMPTED TO REPOSITION AND REMINDED HER SHE HAD FALLEN AND HER GAIT WAS VERY UNSTEADY GRABBED PROCESS HELPER'S SHIRT AND WAS THREATNING TO "PUNCH YOUR UGLY FACE" DIRECTOR INFORMATION SECURITY CONTACTED AND ORDERS RECEIVED FOR HALDOL 5MG IM X1 NOW-PT ALLOWED ADMINISTRATION WITHOUT RESISTANCE
[2021-10-31 19:40] VITALS: BP 141/74
--- NOTE | 2021-11-01 03:55 | NUR ---
PATIENT CARE WAS RESUMED AT 1900. SHE WAS IN THE ROXANNE CHAIR AND SLEEPY. SHE IS ABLE TO VERBALIZE HER NEEDS.DENIES PAINS/SI/AVH/HI. SHE IS CONTINENT OF BOWEL AND BLADDER. BS ACTIVE X4 QUAD. SHE DID ATTEMPT TO GET OUT OF THE ROXANNE-CHAIR COUPLE OF TIME AND WAS REDIRECTED. SHE TOOK HER MEDS WHOLE. ALARM APPLIED TO CHAIR. Q12 MIUTES CHECK ACTIVE. CONTINUE TO MONITOR.
--- NOTE | 2021-11-01 04:01 | NUR ---
This RN assumed patient care at 0100. At this time pt was observed by this RN resting in bed calmly. Pt is high fall risk. Fall precautions in place. Will continue to monitor.
[2021-11-01 06:28] VITALS: BP 100/56
[2021-11-01 09:53] VITALS: BP 100/56
--- NOTE | 2021-11-01 10:33 | NUR ---
Resummed care @0700: Patient located in her room resting comfortably. Patient was assisted by staff into a [employer] this morning for breakfast. A&O*2 - confused, forgetful. No S/O acute distress noted. Patient denies SI/HI/AVH. Denies Pain, and CP. V/S present hypotensive, otherwise stable. Patient presents drowsy, lethargic, quiet, withdrawn, and frail. Patients speech is noted to be slurred and speaking in a whipser. Patient visualzied having AVH. Patient is talking to herself, and is staring off into blank space, with a constricted affect. Gait is unsteady, weak, and shuffled. Patient has had to have an increase in assistance from staff. Lung sounds are clear, diminished. Non-Productive cough present, with a patient complaint of SOB. BSP*4.NT.ND. High-Fall precautions are in place, Chair alarm set and active. Will continue to monitior patient per [facility] Protocol.
[2021-11-01 19:45] VITALS: BP 128/95
[2021-11-01 19:54] VITALS: BP 128/95
--- NOTE | 2021-11-02 02:47 | NUR ---
PATIENT CARE WAS RESUMED AT 1900. SHE WAS SITTING ON THE RECLINER CHAIR WITH ALARM ON AND SHE WAS AWAKE. SHE IS SLEEPY AND SHE TOOK HER MEDS WHOLE. LUNGS ARE CLEAR BS ACTIVE X4 QUAD. SHE DENIES PAINS AND ABLE TO VERABLIZE HER NEEDS.SHE DENIES SI/AVH/HI. SHE IS MAX ASSIST WITH CARE. Q12 MINUTES CHECK
[2021-11-02 12:58] VITALS: BP 98/54
--- NOTE | 2021-11-02 13:54 | NUR ---
Resummed care of patient @0700: Patient was located in the dinning area, seated on the couch. A chair alarm was placed underneath the patient. No S/O acute distress noted. A&O*2 - confused, forgetful. Patient presents calm, cooperative, although impulsive. Patient will stand up without assistance, and when asked to sit back down and well be right there to help her. The patient will then begin laughing. Denied SI/HI/AVH. Denied CP-Pain. Complaints of SOB but states it not as bad as it has been. Non-productive cough is present. V/S present hypotensive, otherwise stable on RoomAir. BSP*4.NT.ND Lung sounds are course and diminished. +1 Bilateral edema is present in lower extremities. A bruise was noted by ENGRAVING PATTERNMAKER to the patients forehead, right side. Patient denied falling or hitting her head at any point. Ambulatory with a walker and *1 assist with a GaitBelt. Patient ambulatory but weak, and gait is unsteady. High-Fall Precautions are in place. Will continue to monitior per [facility] protocol.
[2021-11-02 21:20] VITALS: BP 113/48
--- NOTE | 2021-11-02 22:30 | NUR ---
RESUMMED CARE FROM DAY SHIFT THIS EVENING PATIENT SITTING IN DAY ROOM QUIET. PATIENT ALERT TO SELF AND SITUATION PATIENT DENIES SI/HI/AH/VH AT PRESENT. PATIENT HAD A TEARFUL MOMENT STATING SHE WISH SHE HAD FAMILY THAT WOULD TAKE CARE OF HER. I SAT WITH PATIENT AND COMFORTED HER AND TOLD HER TEARS ARE SOMETIMES GOOD. I TOLD HER THE ENVIRONMENTAL PERMITTING SPECIALIST IS WORKING ON FINDING PLACEMENT. PATIENTS ABDOMEN SOFT BOWEL SOUNDS PRESENT PATIENTS LUNGS CLEAR. PATIENT ASKED TO GO TO BED EARLY AFTER I GAVE HER NIGHT TIME MEDICATION. PATIENT IS ROOM RESTING QUIETLY. WILL CONTINUE TO MONITOR PATIENT FOR SAFETY AND BEHAVIORS.
--- NOTE | 2021-11-03 01:30 | NUR ---
This RN assumed patient care at 0100. At this time pt was resting awake in bed. Pt is a high fall risk. Fall precautions are in place. Will continue to monitor.
[2021-11-03 08:00] VITALS: BP 111/51
[2021-11-03 10:12] VITALS: BP 111/51
--- NOTE | 2021-11-03 11:17 | NUR ---
RT Progress Note- Lindsey's ability to concentrate and participate appropriately in recreation therapy groups has greatly improved throughout this review period. She has engaged with both staff and peers and has required only minimal redirection for impulsive behaviors in group such as suddenly standing up. SPRINKLER TENDER will encourage continued participation.
--- NOTE | 2021-11-03 14:16 | NUR ---
Check-in with patient. Patient called the SW by correct first name. Patient expressed being ready to return to placement. SW informed her that it would be discussed at treatment team meeting this morning.
--- NOTE | 2021-11-03 17:22 | NUR ---
Assumed pt care from overnight shift this am. Pt presented alert and oriented to self only, and was confused when redirected to seat. Pt needed to be reminded to use her walker multiple times during shift, and was reminded to ask staff for help when needing to move objects or access items like coffee and snacks. Pt denied depression and anxiety, stating "I've got it under control." Pt denied si/hi. Pt denied hallucinations, stating that they are "under control" when asked. Pt stated "I just see people suffering" when asked about pain, but denied physical pain. All medication taken and well tolerated. No further concerns during this shift.
[2021-11-03 19:24] VITALS: BP 142/73
--- NOTE | 2021-11-03 23:48 | NUR ---
At onset of welder 2nd shift pt was sitting in her room reading. This shift pt was alert and oriented x3. Pt is aware she may be discharging on Monday. Pt was overall calm, pleasant, and cooperative. Pt was compliant with medication and vital signs. Affect was broad and pt stated she was in a good mood. Pt denied SI, HI and AVH. Pt is high fall risk. Fall precautions in place. Will continue to monitor.
[2021-11-04 09:30] VITALS: BP 118/49
--- NOTE | 2021-11-04 14:36 | NUR ---
Assumed patient at 0700, patient is alert and oriented to person, place, and times. She is cooperative, calm, and pleasant. Patient know that she leaving tomorrow. Patient using walker to walk and took a shower by herself today. she ate 50-60% of meals, will continous to monitoring.
--- NOTE | 2021-11-04 15:17 | NUR ---
Email to Cat regarding the best time for discharge for the patient. The SW followed up with a phone call as a response had not been received. Cat reported the preferable window between 10:00am-11:00am or 1:00pm-2:00pm. [facility]. [facility] availability from 2:00pm-3:00pm. Transportation is weather pending. The SW sent an email to Cat letting her know that it would be between 2:00pm-3:00pm and that the discharge paperwork would be sent to her tomorrow.
--- NOTE | 2021-11-05 05:37 | NUR ---
Assumed care of pt at 1900. Pt calm et cooperative this shift. Took medications whole without difficulty. Ambulates the halls ad vijay with assistance of walker with mostly steady gait. VSWNL. Health assessment with no abnormalities noted at present time. Pt denies SI/Hi at present time. Socialized with peers in dayroom watching TV until HS. Currently resting in bed with eyes closed. Will continue to monitor per unit protocol.
[2021-11-05 06:45] VITALS: BP 112/67
[2021-11-05 09:47] VITALS: BP 158/89
--- NOTE | 2021-11-05 10:23 | NUR ---
Alert and orientated X3. Denies SI/HI. Calm, cooperative and compliant. Took meds whole with liquid. Ambulating around unit with walker with regular, steady gait, needing frequent reminders to use walker. Breath sounds clear. Reg HR auscultated. Color pink with brisk capillary refill and palpable peripheral pulses. No edema noted. Active bowel sounds over soft, flat abdomen. Currently sitting in dining room without s/o distress.
[2021-11-05] MEDS ORDERED: DEPAKOTE500 MG PO (12:34)
--- NOTE | 2021-11-05 16:38 | NUR ---
Email received from [facility] asking if patient had been skilled. SW contacted Cat via phone and let her know the patient had not been skilled. Also informed [facility] that the discharge summary would be faxed shortly.
--- NOTE | 2021-11-06 16:20 | D ---
[facility] [place] [place] [address] DISCHARGE SUMMARY Name: DINORAH BOND Room #: 527A-[facility] IN ..#: [id number] Admission: 10/20/21 Attend Phys: Gorge Anne DO Discharge: 11/05/21 Date of : 43 Report #: [id number] THIS REPORT FOR: cc: Mike Walls MD, Srinath MD Kerstein,Gorge Reed DO ~ DATE OF SERVICE: 11/05/2021 INPATIENT PSYCHIATRIC DISCHARGE SUMMARY ATTENDING PSYCHIATRIST: Gorge Anne D.O. MALARIOLOGIST: Jason Romero D.O. 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 Medical comorbidities are Parkinson's disease by history, not currently symptomatic, chronic thrombocytopenia, remote history of breast and lung cancer, UTI secondary to group B strep, treated with cefuroxime. The patient is discharging back to the [place] [facility], was sent to us from [facility]. Psychiatric and medical care per receiving facility. DIET: Regular. ACTIVITY LEVEL: As tolerated. Uses a rolling walker. Does need some assistance and prompting for bathing. Her sister, Cynthia, is her DPOA. We did have her as a full code this admission. LABORATORY DATA: Significant laboratories: Hematology most recently from 10/29, white count 7.0, H and H 7.6 and 36.6, platelet count 137. Chemistry: Sodium 142, potassium 3.9, chloride 107, bicarbonate 26, anion gap 9, BUN 15, creatinine 0.8, estimated GFR 70, glucose 120, calcium 9.2, vitamin B12 1075, vitamin D 44.9, TSH 1.016, folate is 9. Urinalysis numerous abnormalities. There was a weak infection, culture to 50,000 CFUs group B strep. Toxicology this admission, Depakote level on 10/30 was 92, therapeutic. COVID-19 serology, she has been positive from a recent infection, last test 10/25. Imaging this admission chest x-ray 10/29 for cough showed no pneumonia or pneumothorax. DISCHARGE MEDICATIONS: Trazodone 50 mg oral at bedtime p.r.n. for sleep, famotidine 20 mg oral daily at the afternoon for GERD, atorvastatin 40 mg a day for hyperlipidemia, Depakote dose is DR 500 mg oral twice daily. REASON FOR ADMISSION: Back on 10/20/2021, a 76-year-old female known to us from previous admission, sent out from [facility]; apparently, she had "destroyed her room, was not speaking." HOSPITAL COURSE: The patient was admitted to Geriatric Psychiatry Unit. She [address] [address] DISCHARGE SUMMARY Name: DINORAH BOND Room #: 527A-[facility] M.R.#: [id number] Admission: 10/20/21 Attend Phys: Gorge Anne DO Discharge: 11/05/21 Date of : 43 Report #: [id number] did not have any destructive behavior while on the unit. The patient was treated with gabapentin and risperidone. We had an insufficient response to that, so we switched her over to Depakote with things improved. The COVID issue was judged to be residual positive and not an acute finding. At the day of discharge, the patient was not suicidal, homicidal, felt to be ready for step-down. PHYSICAL EXAMINATION: VITAL SIGNS: Temperature 36.6, pulse 76, respirations 16, BP 158/89, O2 sat 97%. MUSCULOSKELETAL: Assisted gait with walker. Fair dressed. MENTAL STATUS EXAMINATION: Well-developed, somewhat ill-appearing female with BMI 18.1, weight 50.79 kilograms. Attention and concentration fair to limited. Speech normal rate, rhythm and tone. Thought Process: Linear and goal directed. Thought content focused on discharging. Reports some irritation with her left eye. It did not look infected to this author. Denied auditory or visual type hallucinations. Denied any hopeless, helpless. Mood and affect was okay, congruent, euthymic. Memory known to be impaired, not formally tested. Insight and judgment were fair to limited. Fund of knowledge, no greater than average. Prognosis for this patient is guarded given her age of 76, having a neurodegenerative disorder. <ELECTRONICALLY SIGNED> By: Gorge Anne DO 11/06/21 1620 [id number] Gorge Anne DO /nt
== END 2021-11-05 15:00 | DRG 56 ==
LOC: SBH 16:25
PROVIDERS: Hospitalist; Internal Medicine; ADMIT Psychiatry & Neurology Psychiatry; ATTEND Psychiatry & Neurology Psychiatry
DX: G30.9 Alzheimer's disease, unspecified (principal); E43 Unspecified severe protein-calorie malnutrition; U07.1 COVID-19; F02.81 Dementia in other diseases classified elsewhere, unspecified severity, with behavioral disturbance; N39.0 Urinary tract infection, site not specified; Z68.1 Body mass index [BMI] 19.9 or less, adult; G20 Parkinson's disease; D69.6 Thrombocytopenia, unspecified; B95.5 Unspecified streptococcus as the cause of diseases classified elsewhere; Z85.3 Personal history of malignant neoplasm of breast; Z85.118 Personal history of other malignant neoplasm of bronchus and lung; Z88.8 Allergy status to other drugs, medicaments and biological substances; F32.A Depression, unspecified; F41.9 Anxiety disorder, unspecified; E11.69 Type 2 diabetes mellitus with other specified complication; Z79.4 Long term (current) use of insulin; E78.5 Hyperlipidemia, unspecified
CPT/HCPCS: 10880